=== PATIENT | male | born 1960 | race Caucasian/White ===

== ENCOUNTER 2025-02-20 10:31 | Day surgery (SDC) | payer MEDICARE, SELFPAY ==
[2025-02-20] VITALS (17 sets, daily range): BP systolic 105–163; BP diastolic 62–84; PULSE 43–74; RESP 16–20; TEMP 35.7–36.4; O2SAT 92–100; BMI 29.0; BMI 29.4
--- NOTE | 2025-02-20 10:55 | ED_ITS ---
HPI - General Adult General Chief complaint: Abdominal Pain Stated complaint: stomach pain Time Seen by Provider: 02/20/25 10:55 History of Present Illness HPI narrative: Pt reports onset of RLQ pain yesterday afternoon. Pt states severe pain is only symptom. Does report regular self?catheterization . Rates pain . 65-year-old man presenting to the emergency department with complaint of a sharp cramp in his right low abdomen began around 4:00 p.m. yesterday afternoon when he was just walking across the ER. He comes here after pain has escalated. Has been working on his car. Does not recall specific injury. No fever. No nausea. Does not feel like he needs anything for pain. No shortness of breath. He does acknowledge that he has had a swelling into his groin area on the right that he has been pushed back up in periodically. Apparently the swelling has been present for about 2 months. No constipation and no diarrhea. Related Data Previous Rx's ?Medication ?Instructions ?Recorded hydrocodone 5 mg-acetaminophen 325 1 - 2 tab PO Q6H [place] N Pain #20 tabs 02/20/25 mg tablet Allergies Allergy/AdvReac Type Severity Reaction Status Date / Time No Known Drug Allergies Allergy Verified 02/20/25 10:37 Review of Systems Status of ROS: Reports: 6 or more systems reviewed and unremarkable except as noted in History and below [facility] Medical History (Updated 02/21/25 @ 07:51 by Nancy Cordova MD) COPD (chronic obstructive pulmonary disease) ?J44.9 - Chronic obstructive pulmonary disease, unspecified (ICD-10) Cardiopulmonary arrest with successful resuscitation ?I46.9 - Cardiac arrest, cause unspecified (ICD-10) CAD (coronary artery disease) ?I25.10 - Atherosclerotic heart disease of hughes coronary artery without angina pectoris (ICD-10) Surgical History (Updated 02/21/25 @ 08:22 by Nelda Funk MD) H/O umbilical hernia repair ?Z98.890 - Other specified postprocedural states (ICD-10) ?Z87.19 - Personal history of other diseases of the digestive system (ICD-10) History of heart artery stent ?Z95.5 - Presence of coronary angioplasty implant and graft (ICD-10) History of hernia surgery ?Z98.890 - Other specified postprocedural states (ICD-10) ?Z87.19 - Personal history of other diseases of the digestive system (ICD-10) Social History (Updated 02/20/25 @ 15:17 by Giovanny Villareal MD) Narrative: He lives in [place] with his roommate, Kirstin white. Kirstin would be healthcare power of embalmer/funeral director. Code status is full. He smokes up to a pack of cigarettes per day. He does not drink alcohol. He occasionally uses cannabis What is your current living situation?: I presently have a place to live Problems where you live: no known problems In the past 12 months, utilities in danger of being shut off: no In past 12 months, lack of transportation kept you from medical appts, meetings, work, or getting things needed for daily living: no In the past 12 mos, have been you worried that your food would run out before you had money to buy more?: never true In the past 12 mos, the food you bought just didn't last and you didn't have money to buy more?: never true Smoking Status: Current every day smoker What tobacco products do you use: cigarettes Smoking packs per day: 1 Smoking cigarettes per day: 20.0 How often do you have a drink containing alcohol: never AUDIT-C Alcohol total score: 0 Non-prescribed substance use: marijuana (any form) How often does anyone, including family, friends and others, physically hurt you : never How often does anyone, including family, friends and others, insult or talk down to you: never How often does anyone, including family, friends and others, threaten you with harm: never How often does anyone, including family, friends and others, scream or curse at you: never Exam Narrative: Exam Narrative: Pleasant. NAD. Large mustache. Hands heavily stained with grease. Breathing easily. Lungs with good air movement with trace end-expiratory wheeze. Heart in regular rate and rhythm without apparent murmur rub but distant. Abdomen is soft. Moderately tender deep palpation in the right lower quadrant just above the inguinal crease. I do not appreciate a wall defect here. There is however swelling into the right inguinal area. Mildly tender to palpation. No inflam matory changes. Const: Vital Signs, click to edit/add: Vital Signs - 24 hr 02/20/25 10:35 Temperature 97.1 F L Pulse Rate [Pulse Oximeter] 74 Respiratory Rate 20 Blood Pressure [Ri ght Upper Arm] 160/83 H Pulse Oximetry 97 Oxygen Delivery Me thod Room Air Documenting provider has reviewed patient's vital signs: yes Course Vital Signs Vital signs: Initial Vital Signs Temperature 97.1 F L 02/20/25 10:35 Temperature Source Temporal Artery Scan 02/20/25 10:35 Pulse Rate 74 02/20/25 10:35 Respiratory Rate 20 02/20/25 10:35 Blood Pressure 160/83 H 02/20/25 10:35 Blood Pressure Mean 108 H 02/20/25 10:35 Blood Pressure Position Sitting 02/20/25 10:35 Pulse Oximetry 97 02/20/25 10:35 Oxygen Delivery Method Room Air 02/20/25 10:35 Vital Signs Temperature 97.1 F L 02/20/25 10:35 Pulse Rate 74 02/20/25 10:35 Respiratory Rate 20 02/20/25 10:35 Blood Pressure 160/83 H 02/20/25 10:35 Pulse Oximetry 97 02/20/25 10:35 Oxygen Delivery Method Room Air 02/20/25 10:35 Temperature 97.4 F L 02/21/25 07:00 Pulse Rate 62 02/21/25 07:00 Respiratory Rate 16 02/21/25 07:00 Blood Pressure 119/76 02/21/25 07:00 Pulse Oximetry 97 02/21/25 07:00 Oxygen Delivery Method Room Air 02/21/25 07:00 Oxygen Flow Rate 0 02/21/25 03:00 Medications Administered Medications: Discontinued Medications Generic Name Dose Route Start Last Admin Trade Name Aaronq PRN Reason Stop Dose Admin Hydrocodone Bitart/Acetaminophen 1 - 2 tab 02/20/25 21:18 02/20/25 21:57 Hydrocodone-Acetamin 5-325 Mg 1 Tab PO 1 tab Q4H PRN Administration Pain Bupivacaine HCl 30 ml 02/20/25 19:43 02/20/25 20:30 Bupivacaine 0.25% 30 Ml INJECTION 02/20/25 19:44 20 ml ONCE ONE Administration Lactated Ringer's 1,000 mls @ 125 mls/hr 02/20/25 14:55 02/21/25 07:22 Lactated Ringers 1000 Ml IV Not Given .Q8H BABAK Piperacillin Sod/Tazobactam 100 mls @ 200 mls/hr 02/20/25 15:00 02/21/25 05:43 Sod 3.375 gm/ Sodium Chloride IVPB Infused Q6H BABAK Infusion Sodium Chloride 5 ml 02/20/25 21:00 02/20/25 21:57 Sodium Chloride 0.9 % (Flush) 10 Ml Syringe IVF 5 ml BID BABAK Administration Medical Decision Making MDM Narrative Medical decision making narrative: A does appear to have inguinal hernia. Will evaluate with imaging for incarceration. I am not sure that has risen set level. Could also have appendicitis or mesenteric adenitis or ureteral stone and colic. Doubtful urinary tract infection. Does not feel anything for pain. Placing IV though for next steps. Reviewing history further with Mr. Cardona. He notes a history of coronary artery disease with a number of stents. Last was done around RSV infection in August of this year (actually 2023) he says when it sounds like he had a cardiopulmonary arrest and was hospitalized for a time. He admits that he has been prescribed medications but does not take any because he does not believe in them. More remotely had an umbilical hernia repair. Otherwise denies any other medical problems. He says he works hard regularly. Regularly cutting in throwing wood. He says he feels great. Urine actually does suggest infection with positive nitrites and 5-10 white cells. Indication: Right lower quadrant pain times 24 hours Technique: Volumetric multidetector CT images of the abdomen and pelvis were without the administration of intravenous contrast. Comparison: None available. Findings: There is basilar atelectasis and parenchymal scar within peripheral right lower lobe. The liver is normal in attenuation without intrahepatic biliary ductal dilatation. The gallbladder is unremarkable without evidence of radiopaque calculus. There is no significant common biliary ductal dilatation or abrupt cut off. The spleen is normal in attenuation and size. The stomach and duodenum are grossly unremarkable. The pancreas is normal in attenuation without significant atrophy. The adrenal glands are unremarkable. Cystic changes of the kidneys. No evidence of hydronephrosis or obstructive uropathy. Moderate stool seen throughout the colon with focal dilatation and inflammatory change adjacent to the terminal ileum and right lower quadrant. There is demonstration of a appendix seen within a right inguinal hernia with questionable mild dilatation and periappendiceal inflammatory changes around the proximal aspect with minimal inflammatory changes tracking into the right inguinal canal and scrotum. There is no significant mesenteric, retroperitoneal, or pelvic sidewall lymph nodes. The aorta is mildly aneurysmal measuring 3.7 x 3.4 centimeters in greatest dimension. The solid pelvic viscera are grossly unremarkable. There is no free fluid or free air. The anterior abdominal wall is intact without significant hernias. The lumbar vertebral body heights are grossly maintained with minimal endplate Schmorl`s defects. There is mild focal straightening of the normal thoracic kyphosis at the thoracolumbar junction. Impression: 1. Demonstration of a herniated appendix within a right inguinal hernia consistent with an Amyand hernia with questionable dilatation of the proximal appendix and periappendiceal inflammatory changes of the right lower quadrant mesentery tracking into the right inguinal canal which may represent developing early appendicitis within right inguinal hernia. There is mild thickening and dilatation of the distal terminal ileum which may represent focal ileus. Please note that all CT scans at this facility use dose modulation, iterative reconstruction, and/or weight-based dosing when appropriate to reduce radiation dose to as low as reasonably achievable. Dictated by Luis Mejia MD @ 02/20/2025 11:48:22 AM I discussed findings with General surgery. Anticipate likely need for surgical intervention. Have discussed with hospitalist for admission. Anticipate antibiotic coverage likely for this urinalysis results and perioperatively. Lab Data Lab results reviewed: Yes I reviewed the patient's lab results Labs: Lab Results 02/20/25 02/20/25 Range/Units 11:25 11:55 WBC 7.06 (4.50-11.00) K/uL RBC 4.80 (4.30-5.90) m/uL Hgb 14.5 (13.5-17.5) gm/dL Hct 44.7 (37.0-53.0) % MCV 93 (80-100) fL MCH 30 (26-34) pg MCHC 32 (32-36) gm/dL RDW Coeff of Josue 13.5 (11.5-15.5) % Plt Count 172 (140-440) K/uL Neut % (Auto) 67.8 (42.0-72.0) % Lymph % (Auto) 22.1 (20-44) % [place] % (Auto) 8.2 (0.0-11.0) % Eos % (Auto) 1.4 (0.0-7.0) % Baso % (Auto) 0.4 (0.0-3.0) % Neut # (Auto) 4.78 (1.7-7.0) K/uL Lymph # (Auto) 1.56 (0.90-2.90) K/uL [place] # (Auto) 0.60 (0.00-0.90) K/UL Eos # (Auto) 0.10 (0.00-0.50) K/uL Baso # (Auto) 0.03 (0.00-0.30) K/uL Abs Immat Gran (auto) 0.01 (0.00-0.30) K/uL Imm/Tot Granulo (auto) 0.1 % Sodium 137 (135-149) mmol/L Potassium 3.7 (3.6-5.1) mmol/L Chloride 108 (96-114) mmol/L Carbon Dioxide 26 (20-32) mmol/L Anion Gap 3 L (7-15) mEq/L BUN 18 (7-30) mg/dL Creatinine 0.9 (0.5-1.5) mg/dL Estimated Creat Clear 68.85 Estimated GFR 95 ml/min Glucose 106 (60-115) mg/dL Calcium 9.2 (8.4-10.6) mg/dL C-Reactive Protein 0.5 (0.5-1.0) mg/dL Urine Color Yellow (Yellow) Urine Appearance Slightly Cloudy A (Clear) Urine pH 6.0 (5.0-8.5) Ur Specific Dunbar 1.025 (1.000-1.030) Urine Protein Negative (Negative) Urine Glucose (UA) Negative (Negative) Urine Ketones Trace A (Negative) Urine Blood Negative (Negative) Urine Nitrite Positive A (Negative) Urine Bilirubin Negative (Negative) Urine Urobilinogen 0.2 (0.2-1.0) Ur Leukocyte Esterase Negative (Negative) Urine RBC 0-2 (0-2) Urine WBC 5-10 A (0-5) Ur Squamous Epith Cells None (None-Few) Urine Bacteria Many A (None) Discharge Plan Discharge Clinical Impression: Appendicitis, Inguinal hernia Patient Disposition: Admitted As Inpatient Condition: Stable Activity Level: No strenuous activity Activity Detail: No lifting more than 20 lb for 4 weeks Discharge Diet: Regular
--- NOTE | 2025-02-20 11:16 | CRLHL7_ITS ---
For Patients: As a result of the Century Cures Act, medical imaging exams and procedure reports are released immediately into your electronic medical record. You may view this report before your referring provider. If you have questions, please contact your health care provider. Indication: Right lower quadrant pain times 24 hours Technique: Volumetric multidetector CT images of the abdomen and pelvis were without the administration of intravenous contrast. Comparison: None available. Findings: There is basilar atelectasis and parenchymal scar within peripheral right lower lobe. The liver is normal in attenuation without intrahepatic biliary ductal dilatation. The gallbladder is unremarkable without evidence of radiopaque calculus. There is no significant common biliary ductal dilatation or abrupt cut off. The spleen is normal in attenuation and size. The stomach and duodenum are grossly unremarkable. The pancreas is normal in attenuation without significant atrophy. The adrenal glands are unremarkable. Cystic changes of the kidneys. No evidence of hydronephrosis or obstructive uropathy. Moderate stool seen throughout the colon with focal dilatation and inflammatory change adjacent to the terminal ileum and right lower quadrant. There is demonstration of a appendix seen within a right inguinal hernia with questionable mild dilatation and periappendiceal inflammatory changes around the proximal aspect with minimal inflammatory changes tracking into the right inguinal canal and scrotum. There is no significant mesenteric, retroperitoneal, or pelvic sidewall lymph nodes. The aorta is mildly aneurysmal measuring 3.7 x 3.4 centimeters in greatest dimension. The solid pelvic viscera are grossly unremarkable. There is no free fluid or free air. The anterior abdominal wall is intact without significant hernias. The lumbar vertebral body heights are grossly maintained with minimal endplate Schmorl`s defects. There is mild focal straightening of the normal thoracic kyphosis at the thoracolumbar junction. Impression: 1. Demonstration of a herniated appendix within a right inguinal hernia consistent with an Amyand hernia with questionable dilatation of the proximal appendix and periappendiceal inflammatory changes of the right lower quadrant mesentery tracking into the right inguinal canal which may represent developing early appendicitis within right inguinal hernia. There is mild thickening and dilatation of the distal terminal ileum which may represent focal ileus. Please note that all CT scans at this facility use dose modulation, iterative reconstruction, and/or weight-based dosing when appropriate to reduce radiation dose to as low as reasonably achievable. Dictated by Luis Mejia MD @ 02/20/2025 11:48:22 AM (Electronically Signed)
[2025-02-20 11:39] LABS: Hematocrit 44.7 % (37.0-53.0); Hemoglobin* 14.5 gm/dL (13.5-17.5); Immature Granulocytes Abs Auto 0.01 K/uL (0.00-0.30); Immature Granulocytes Pct Auto 0.1 %; Lymphocytes Absolute Auto 1.56 K/uL (0.90-2.90); Mean Corpuscular HGB Conc 32 gm/dL (32-36); Mean Corpuscular Hemoglobin 30 pg (26-34); Mean Corpuscular Volume 93 fL (80-100); RDW Coefficient of Variation % 13.5 % (11.5-15.5); Red Blood Count 4.80 m/uL (4.30-5.90); White Blood Count* 7.06 K/uL (4.50-11.00)
[2025-02-20 11:43] LABS: Slide Review Reflex No
[2025-02-20 11:49] LABS: Chloride* 108 mmol/L (96-114); Potassium* 3.7 mmol/L (3.6-5.1); Sodium* 137 mmol/L (135-149)
[2025-02-20 11:52] LABS: Blood Urea Nitrogen* 18 mg/dL (7-30); Creatinine* 0.9 mg/dL (0.5-1.5); Est. Creatinine Clearance* 68.85; Estimated Glomerular Filt Rate 95 ml/min
[2025-02-20 11:53] LABS: Anion Gap 3 mEq/L (7-15); Calcium* 9.2 mg/dL (8.4-10.6); Carbon Dioxide* 26 mmol/L (20-32); Glucose* 106 mg/dL (60-115)
--- OUTSIDE RECORDS SUMMARY | 2025-02-20 11:59 | XMS_ITS | Clinical Summary ---
Author Organization [employer] [facility] Address [address] [place] [id number] Care Team Providers Care Junior Loan Processor Name Role Phone [facility], [facility] Pro vider Allergies Active Allergy Reactions Criticality Noted Date Comments Atorvastatin *Unknown 09/03/2014 Cat Dander Other - Describe In Comment Field 08/03/2018 Breathing, eyes swell up Isosorbide Mononitrate Headache 11/01/2010 Niacin Rash 12/06/2013 Medications aspirin (ECOTRIN) 81 mg enteric coated tablet Take 81 mg by mouth once daily with a meal. Active NebulizerIndicat ions:Asthma with COPD with exacerbation (HC) Nebulizer, disposable neb kit x 4, reuseable neb kit x 1, mask x 1, filters x 1. Frequency of use: daily; Medication: Albuterol Length of need: 2 months 1 Each 06/30/19 24 Active acetaminophen (TYLENOL EXTRA STRGTH) 500 mg tablet Take 1,000 mg by mouth every 6 hours if needed. Max acetaminophen dose: 4000mg in 24 hrs. Active rosuvastatin (CRESTOR) 20 mg tabletIndication s:ST elevation myocardial infarction involving right coronary artery (HC) Take 1 Tablet (20 mg) by mouth at bedtime. 90 Tablet 3 09/06/19 24 Active carvediloL (COREG) 3.125 mg tabletIndication s:ST elevation myocardial infarction involving right coronary artery (HC) Take 1 Tablet (3.125 mg) by mouth two times daily with meals. 180 Tablet 3 09/06/19 24 Active ticagrelor (BRILINTA) 90 mg tabletIndication s:ST elevation myocardial infarction involving right coronary artery (HC) Take 1 Tablet (90 mg) by mouth two times daily. 180 Tablet 3 09/06/19 24 Active ezetimibe (Zetia) 10 mg tabletIndication s:Arteriosclerot ic heart disease Take 1 Tablet (10 mg) by mouth once daily. 90 Tablet 3 12/17/19 24 Active Ventolin HFA 90 mcg/actuation inhalerIndicatio ns:Mild intermittent asthma with exacerbation (HC) INHALE 2 PUFFS BY MOUTH FOUR TIMES A DAY NEEDED FOR WHEEZING OR SHORTNESS OF BREATH 18 g 01/13/20 24 Active albuterol-ipratr opium (DUONEB) (2.5-0.5 mg) in 3 mL NEBULIZATION solutionIndicati ons:Asthma with COPD with exacerbation (HC) INHALE 3 ML VIA A NEBULIZER EVERY 6 HOURS NEEDED FOR WHEEZING OR SHORTNESS OF BREATH. 180 mL 05/11/20 24 Active albuterol HFA (Ventolin HFA) 90 mcg/actuation inhalerIndicatio ns:Mild intermittent asthma with exacerbation (HC) INHALE 2 PUFFS BY MOUTH 4 TIMES DAILY IF NEEDED FOR WHEEZING OR SHORTNESS OF BREATH. 18 g 5 05/30/20 24 Active HYDROcodone-acet aminophen (5-325 mg/tablet)Indica tions:Dental abscess Take 2 Tablets by mouth 4 times daily if needed for Pain. Max acetaminophen dose: 4000 mg in 24 hrs. 15 Tablet 08/16/19 25 Active Active Problems Problem Noted Date Diagnosed Date Acute respiratory failure 07/27/2023 Leukocytosis 07/27/2023 Encounter for continuous amalia al replacement therapy (CRRT) for acute renal failure 07/20/2023 TAMMY (acute kidney injury) 07/20/2023 Acidemia 07/20/2023 Need for vaccination 07/20/2023 Pneumonia due to respiratory syncytial virus (RS V) 07/20/2023 Need for vaccination 07/20/2023 Life threatening medical illness 07/20/2023 Cardiac arrest 07/18/2023 ST elevation myocardial infa rction involving right coronary artery 07/18/2023 COPD with acute exacerbation 07/18/2023 Pulmonary nodule, right 01/08/2018 Overview (01/08/2018): December 2017 CT Pulmonary nodule right lower lobe as well as nodules along the right minor and major fissures as described above largest measuring 0.6 cm Hypertension 02/17/2016 Overview (06/07/2019): Hypertension (HTN) NOS Pneumonia 11/14/2013 Hypoxemia 11/14/2013 COPD (chronic obstructive pulmonary disease) CAD (coronary artery disease) 11/14/2013 Hyperlipidemia LDL goal < 70 11/14/2013 Tobacco use 11/14/2013 Thrombocytopenia 11/14/2013 Unspecified asthma(493.90) 01/16/2011 History of heart attack 01/16/2011 Immunizations Immunization Administration Dates Next Due Influenza Virus, Unspecified 03/26/2016,07/13/19 15,04/28/2012 Influenza, IIV3 (Age >=3 years) 04/28/2012,05/18,09/12/2007 Influenza, IIV4 08/06/2023,03/26/2016 Pneumococcal Conj 20-valent (Prevnar 20) 024 Pneumococcal Poly,23-Valent (Pneumovax) 11/16/19 14,09/12/2007 Pneumococcal conj 13-Valent (Prevnar 13) 015 Pneumococcal conj 7-Valent (Prevnar 7) 8 Tdap 10/08/2020,03/26/2011 Family History Medical History Relation Name Comments No Known Problems Father No Known Problems Mother Relation Name Status Comments Father Mother Social History Tobacco Use Types Packs/Day Years Used Date Smoking Tobacco: Every Day Cigarettes Passive Smoke Exposure: Current Smokeless Tobacco: Never Tobacco Cessation:Ready to Q uit: Not Asked; Counseling Given: Not Answered Alcohol Use Standard Drinks/Week Comments No 0 (1 standard drink = 0.6 oz pure alcohol) Just drinks socially other hernandez does not drink PHQ-2 Answer Date Recorded PHQ-2 TOTAL SCORE 0 05/30/2024 Social Connections Answer Date Recorded Frequency of Communication with Friends and Fami ly 0 11/10/2022 Financial Resource Strain Answer Date R ecorded Difficulty of Paying Living Expenses Not on file 11/10/2022 Difficulty of Paying Living Expenses 3 11/10/2022 Food Insecurity Answer Date Recorded Worried About Running Out of Food in the Last Ye ar 2 11/10/2022 Transportation Needs Answer Date Record ed Lack of Transportation (Medical) 2 11/10/2022 Housing Stability Answer Date Recorded Unable to Pay for Housing in the Last Year 3 11/10/2022 Interpersonal Safety Answer Date Record ed Are you being hit, kicked, p ushed or yelled at (see row info)? 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[employer] Gender Identity Not on file Sexual Orientation Not on file Obstetrics History Last Filed Vital Signs Vital Sign Reading Time Taken Comments Blood Pressure 151/87 08/16/2024 10:11 AM PLASTERER JOURNEYMAN Pulse 71 08/16/2024 10:11 AM PLASTERER JOURNEYMAN Temperature 36.4 C (97.6 F) 08/16/2024 9:11 AM PLASTERER JOURNEYMAN Respiratory Rate 18 08/16/2024 9:11 AM PLASTERER JOURNEYMAN Oxygen Saturation 95% 08/16/2024 10:11 AM PLASTERER JOURNEYMAN Inhaled Oxygen Concentration - - Weight 98.1 kg (216 lb 3.2 oz) 08/16/2024 9:11 A M [employer] JOURNEY[employer] Height 172.7 cm (5' 8) 08/16/2024 9:11 AM PLASTERER JOURNEYMAN Body Mass Index 32.87 08/16/2024 9:11 AM PLASTERER JOURNEYMAN Plan of Treatment Health Maintenance Due Date Last Done Comments HIV for age 15-65 01/09/1975 Hepatitis C screening for age 18-79 01/09/1978 Colonoscopy through age 75 01/09/2005 Zoster (shingles) series for age 50+ (1 of 2) 01/09/2010 RSV vaccine for adults or (1 - Risk 60-74 years 1-dose series) 2020 COVID-19 vaccine series ( - 2023- season) 2024 BMI (ht and wt on same day) for age 18+ 09/05/2024 09/06/2023, 08/06/2023, 11/10/2022 AAA screening age 65-74 01/09/2025 01/08/2018, 02/11 Influenza Vaccine (#1) 2025 , 03/26/2016, 03/26/2016, Additional history exists Depression screening for age 12+ 05/30/2025 05/30/2024, 11/12/2022, 11/10/2022 Lipids for age 45-75 12/14/2028 12/15/2023, 11/16/19 14 Tetanus booster 10/08/2030 10/08/2020, 03/26/2011 Pneumococcal series for age 50+ Completed 08/06/2023, 07/13/2014, 11/15/2013, Additional history exists Hepatitis B series for 19+ Aged Out N o longer eligible based on patient's age to complete this topic Medical Devices Implanted Type Area Preschool Lead Teacher Device Identifier Shelf Expiration Date Model / Serial / Lot Mesh Ventralex Hernia Patch (S) #[id number] - [id number] Implanted:Qty: 1 on 12/06/2013 by Lebron Kerns MD at [facility] N/A: Abdomen D-BARD 11/26/2015 [id number] / / [id number] Procedures Procedure Name Priority Date/Time Associated Diagnosis Comments LIPID PANEL W REFLEX MEASURED LDL Routine 12/15/2023 1:50 PM CDT Pure hypercholesterolemia CTA CHEST ABDOMEN PELVIS AORTIC DISSECTION W STAT 01/08/2018 5:39 AM CDT from Last 3 Months or Most Recently Relevant to Health Maintenance Results * (ABNORMAL) LIPID PANEL W REFLEX MEASURED LDL ([id number]) (12/15/2023 1:50 PM CDT) CHOLESTEROL,TOTAL 209(H) 100 - 199 mg/dL 12/15/2023 2:33 PM CDT [facility] Comment: Cholesterol, Total Reference Ranges Desirable <200 mg/dL Borderline 200-239 mg/dL High >=240 mg/dL TRIGLYCERIDES 241(H) <150 mg/dL 12/15/2023 2:33 PM CDT [facility] HDL CHOLESTEROL 39(L) >40 mg/dL 4 2:33 PM T [facility] NON-HDL CHOLESTEROL 170(H) <145 mg/dl 12/15/2023 2:33 PM CDT [facility] CHOL/HDL RATIO 5.36(H) <4.50 12/15/2023 2:33 PM CDT [facility] LDL CHOLESTEROL 122 <=130 mg/dL 12/15/2023 2:33 PM CDT [facility] VLDL CHOLESTEROL 48(H) <=30 mg/dL 12/15/2023 2:33 PM CDT [facility] PROVIDER ORDERED STATUS RANDOM 12/15/2023 2:33 PM CDT [facility] Blood BLOOD SPECIMEN / Unknown Venipuncture / Unknown 12/15/2023 1:50 PM CDT 12/15/2023 1:50 PM CDT us Andrew Joe MD CHEMISTRY Final Result [facility] [address] [place] [address] * CTA CHEST ABDOMEN PELVIS AORTIC DISSECTION W (01/08/2018 5:39 AM CDT) Anatomical Region Laterality Modality CHEST, Abdomen, Pelvis, AORTA, THORAX, HEART Computed Tomography 01/08/2018 7:33 AM CDT Narrative 01/08/2018 7:33 AM CDT INDICATION: Chest pain. TECHNIQUE: Initial axial images were obtained from the apices to the mid abdomen without contrast. Subsequent axial images were obtained from the diaphragm to the symphysis pubis after administration of 100 mL Isovue-370 intravenously. Repeat axial images were obtained from the apices to the diaphragm 1 hour after the initial study without additional contrast. Subsequent axial images were then obtained from the apices to the diaphragm after administration of additional Isovue-370 intravenously. Sagittal and coronal reformatted images were obtained. FINDINGS: Chest: There is atelectasis in the dependent portion lungs. On image number 97 of series 13 there is a 0.6 cm nodule in the right lower lobe. Along the right minor fissure on image #67 of series 13 there is a 0.6 cm pulmonary nodule. On image #68 of series 13 there are 2 pulmonary nodule along the right major fissure measuring up to 0.5 cm. There is no aortic dissection seen on this the study. There are atherosclerotic calcifications. There is no axillary or mediastinal adenopathy. There is a borderline prominent hilar lymph nodes bilaterally. Abdomen and pelvis: The liver is of diffuse decreased attenuation consistent with fatty infiltration of the liver. There is no focal liver lesions seen. The spleen, pancreas, gallbladder and adrenal glands are unremarkable. There is a 1.6 cm cyst in the lower pole of the right kidney. There is no hydronephrosis seen in the kidneys. There is no evidence of a bowel obstruction. There are scattered diverticula in the descending and sigmoid colon. There is no evidence of a diverticulitis. The appendix is visualized in the right lower quadrant and is unremarkable. There is no adenopathy seen. The wall of the urinary bladder appears thickened. There is no free fluid the pelvis. There are degenerative changes in the spine. IMPRESSION: 1. No aortic dissection seen. 2. Pulmonary nodule right lower lobe as well as nodules along the right minor and major fissures as described above largest measuring 0.6 cm. Recommend follow-up per the Fleischner site as described below. 3. Borderline prominent hilar lymph nodes. 4. Appearance of a thickening of the wall urinary bladder. This could be secondary to a cystitis. 5. Scattered diverticula in the descending and sigmoid colon. No evidence of diverticulitis. 6. Right kidney cyst. 7. Fatty infiltration of the liver. FLEISCHNER SOCIETY GUIDELINES - SOLID NODULES: SINGLE LOW RISK - nodule less than 6 mm: No routine follow-up. - nodule 6-8 mm: CT at 6-12 months, then consider CT at 18-24 months. - nodule greater than 8 mm: Consider CT at 3 months, PET/CT or tissue sampling. SINGLE HIGH RISK - nodule less than 6 mm: Optional CT at 12 months. - nodule 6-8 mm: CT at 6-12 months, then CT at 18-24 months. - nodule greater than 8 mm: Consider CT at 3 months, PET/CT or tissue sampling. MULTIPLE LOW RISK - nodule less than 6 mm: No routine follow-up. - nodule 6-8 mm: CT at 3-6 months, then consider CT at 18-24 months. - nodule greater than 8 mm: CT at 3-6 months, then consider CT at 18-24 months. MULTIPLE HIGH RISK - nodule less than 6 mm: Optional CT at 12 months. - nodule 6-8 mm: CT at 3-6 months, then at 18-24 months. - nodule greater than 8 mm: CT at 3-6 months, then at 18-24 months. 1. Dictated by Giovanny Zuleta MD @ 01/08/2018 7:33:26 AM Please note that all CT scans at this facility use dose modulation, iterative reconstruction, and/or weight-based dosing when appropriate to reduce radiation dose to as low as reasonably achievable. Dictated by: Giovanny Zuleta MD @ 01/08/2018 07:33:54 (Electronically Signed) Procedure Note Giovanny Zuleta MD - 01/08/2018 INDICATION: Chest pain. TECHNIQUE: Initial axial images were obtained from the apices to the mid abdomenwithout contrast. Subsequent axial images were obtained from the diaphragmto the symphysis pubis after administration of 100 mL Isovue-370intravenously. Repeat axial images were obtained from the apices to thediaphragm 1 hour after the initial study without additional contrast.Subsequent axial images were then obtained from the apices to thediaphragm after administration of additional Isovue-370 intravenously.Sagittal and coronal reformatted images were obtained. FINDINGS: Chest: There is atelectasis in the dependent portion lungs. On image number 97 ofseries 13 there is a 0.6 cm nodule in the right lower lobe. Along theright minor fissure on image #67 of series 13 there is a 0.6 cm pulmonarynodule. On image #68 of series 13 there are 2 pulmonary nodule along theright major fissure measuring up to 0.5 cm. There is no aortic dissectionseen on this the study. There are atherosclerotic calcifications. There isno axillary or mediastinal adenopathy. There is a borderline prominenthilar lymph nodes bilaterally. Abdomen and pelvis: The liver is of diffuse decreased attenuation consistent with fattyinfiltration of the liver. There is no focal liver lesions seen. Thespleen, pancreas, gallbladder and adrenal glands are unremarkable. Thereis a 1.6 cm cyst in the lower pole of the right kidney. There is nohydronephrosis seen in the kidneys. There is no evidence of a bowelobstruction. There are scattered diverticula in the descending and sigmoidcolon. There is no evidence of a diverticulitis. The appendix isvisualized in the right lower quadrant and is unremarkable. There is noadenopathy seen. The wall of the urinary bladder appears thickened. Thereis no free fluid the pelvis. There are degenerative changes in thespine. IMPRESSION: 1. No aortic dissection seen. 2. Pulmonary nodule right lower lobe as well as nodules along the rightminor and major fissures as described above largest measuring 0.6 cm.Recommend follow-up per the Fleischner site as described below. 3. Borderline prominent hilar lymph nodes. 4. Appearance of a thickening of the wall urinary bladder. This could besecondary to a cystitis. 5. Scattered diverticula in the descending and sigmoid colon. No evidenceof diverticulitis. 6. Right kidney cyst. 7. Fatty infiltration of the liver. FLEISCHNER SOCIETY GUIDELINES - SOLID NODULES: SINGLE LOW RISK - nodule less than 6 mm: No routine follow-up. - nodule 6-8 mm: CT at 6-12 months, then consider CT at 18-24 months. - nodule greater than 8 mm: Consider CT at 3 months, PET/CT or tissuesampling. SINGLE HIGH RISK - nodule less than 6 mm: Optional CT at 12 months. - nodule 6-8 mm: CT at 6-12 months, then CT at 18-24 months. - nodule greater than 8 mm: Consider CT at 3 months, PET/CT or tissuesampling. MULTIPLE LOW RISK - nodule less than 6 mm: No routine follow-up. - nodule 6-8 mm: CT at 3-6 months, then consider CT at 18-24 months. - nodule greater than 8 mm: CT at 3-6 months, then consider CT at 18-24months. MULTIPLE HIGH RISK - nodule less than 6 mm: Optional CT at 12 months. - nodule 6-8 mm: CT at 3-6 months, then at 18-24 months. - nodule greater than 8 mm: CT at 3-6 months, then at 18-24 months. 1. Dictated by Giovanny Zuleta MD @ 01/08/2018 7:33:26 AM Please note that all CT scans at this facility use dose modulation,iterative reconstruction, and/or weight-based dosing when appropriate toreduce radiation dose to as low as reasonably achievable. Dictated by: Giovanny Zuleta MD @ 01/08/2018 07:33:54 (Electronically Signed) us Adele Saul MD CT Final Result from Last 3 Months or Most Recently Relevant to Health Maintenance Insurance [facility] Advance Directives * Full Code (Latest Code Status on File) Date Activated Date Inactivated Comments 07/18/2023 3:11 PM 07/29/2023 6:11 PM Question Answer Comments Code Status Discussion: Reviewed Preferences * Full Code Date Activated Date Inactivated Comments 12/06/2013 8:06 AM 12/06/2013 2:50 PM * Full Code Date Activated Date Inactivated Comments 11/30/2013 8:18 AM 11/30/2013 12:00 PM * Full Code Date Activated Date Inactivated Comments 11/13/2013 10:54 PM 11/15/2013 4:57 PM Care Teams Junior Loan Processor Relationship Specialty Start Date End Date [facility], [address] [address] PCP - General 10/30/[address] [address] 07/29/23
[2025-02-20 12:06] LABS: Appearance Urine Slightly Cloudy (Clear)
--- NOTE | 2025-02-20 13:18 | CRLHL7_ITS ---
For Patients: As a result of the Cures Act, medical imaging exams and procedure reports are released immediately into your electronic medical record. You may view this report before your referring provider. If you have questions, please contact your health care provider. Indication: Wheezing, preop Comparison: None available. Technique: PA and lateral views of the chest Findings: There are diffusely increased interstitial markings throughout the bilateral hemithoraces without dense consolidation. No pneumothorax or pleural effusion. The cardiomediastinal silhouette is within normal limits. The bony thorax is grossly intact. Impression: Diffusely increased interstitial markings seen throughout the bilateral hemithoraces which may represent mild pulmonary vascular congestion. Dictated by Luis Mejia MD @ 02/20/2025 1:39:32 PM (Electronically Signed)
--- NOTE | 2025-02-20 15:07 | PM.IMHP1 ---
Assessment and Plan Assessment and plan (1) Appendicitis: Status: Acute (2) Inguinal hernia: Status: Acute (3) CAD (coronary artery disease): Problem comment: Cardiac arrest June 2023. Right coronary stent placed at that time. Subsequently he has discontinued antiplatelet and lipid-lowering therapy. Status: Acute (4) COPD (chronic obstructive pulmonary disease): Problem comment: Secondary to cigarette smoking. Continues to smoke. Status: Acute Plan 65-year-old male with coronary artery disease, COPD and now appendicitis. He is at increased risk of complications due to coronary artery disease and COPD and noncompliance with medical treatment. By his history he is physically active and likely has good exercise tolerance. We discussed risks and benefits of surgery and anesthesia. He agrees to surgery here. He understands there is a small risk of cardia respiratory complications and possible need for transfer for higher level of care. He agrees to hold off on eating until he is recovered from surgery. Total Time Spent Total Time Spent: Total time spent today is 75 minutes in reviewing outside records, coordination of care and discussing plan of care with patient, surgery, Anesthesia, Nursing. Hospitalist- H&P: [facility] History of Present Illness Date Seen: 02/20/25 Chief complaint: stomach pain Narrative: Marcelo Cardona is a 65 year old male with history of cardiac arrest secondary to coronary artery disease and COPD presents with a 1 day history of right lower quadrant pain. He was moving logs yesterday with a friend when he suddenly had right lower quadrant pain. The pain persisted to today so he came to the emergency room for evaluation. He has had nothing to eat today. Past history is notable for a cardiac arrest which occurred while he was in the hospital for difficulty breathing. He underwent CPR for 2 rounds and did get ROSC . He was noted to have ST elevation in the inferior leads so he is taken to the [facility] where he underwent stent placement in the right coronary artery. He was on a ventilator for 1 week. He had acute kidney injury and acute encephalopathy which improved. He was prescribed medication for his coronary disease including aspirin, ticagrelor, Zetia, rosuvastatin but he is no longer taking those medications and is no longer interested in having them prescribed for him. He has COPD secondary to cigarette smoking. He continues to smoke around 1 pack cigarettes a day. In the emergency department CT imaging showed what appears to be appendicitis within a right inguinal hernia. Review of Systems Narrative: He reports he has been well recently without chest pain, dyspnea, gastrointestinal problems. He has noted over the last couple months that he has had swelling in his groin area on the right which is likely is hernia and which he has been self reducing. He has had previous surgeries include a umbilical hernia repair, ORIF of a right ankle fracture, cardiac stents. No previous problems with anesthesia, bleeding or clotting. Patient reports his primary concern is that he is hungry. He is threatening to leave if we do not provide him food soon. [facility] Medical History (Updated 02/20/25 @ 15:24 by Giovanny Villareal MD) COPD (chronic obstructive pulmonary disease) ?J44.9 - Chronic obstructive pulmonary disease, unspecified (ICD-10) Cardiopulmonary arrest with successful resuscitation ?I46.9 - Cardiac arrest, cause unspecified (ICD-10) CAD (coronary artery disease) ?I25.10 - Atherosclerotic heart disease of [place] coronary artery without angina pectoris (ICD-10) Surgical History (Updated 02/20/25 @ 15:16 by Giovanny Villareal MD) H/O umbilical hernia repair ?Z98.890 - Other specified postprocedural states (ICD-10) ?Z87.19 - Personal history of other diseases of the digestive system (ICD-10) History of heart artery stent ?Z95.5 - Presence of coronary angioplasty implant and graft (ICD-10) History of hernia surgery ?Z98.890 - Other specified postprocedural states (ICD-10) ?Z87.19 - Personal history of other diseases of the digestive system (ICD-10) Social History (Updated 02/20/25 @ 15:17 by Giovanny Villareal MD) Narrative: He lives in [place] with his roommate, Kirstin white. Kirstin would be healthcare power of marketing project specialist. Code status is full. He smokes up to a pack of cigarettes per day. He does not drink alcohol. He occasionally uses cannabis What is your current living situation?: I presently have a place to live Problems where you live: no known problems In the past 12 months, utilities in danger of being shut off: no In past 12 months, lack of transportation kept you from medical appts, meetings, work, or getting things needed for daily living: no In the past 12 mos, have been you worried that your food would run out before you had money to buy more?: never true In the past 12 mos, the food you bought just didn't last and you didn't have money to buy more?: never true Smoking Status: Current every day smoker What tobacco products do you use: cigarettes Smoking packs per day: 1 Smoking cigarettes per day: 20.0 How often do you have a drink containing alcohol: never AUDIT-C Alcohol total score: 0 Non-prescribed substance use: marijuana (any form) How often does anyone, including family, friends and others, physically hurt you: never How often does anyone, including family, friends and others, insult or talk down to you: never How often does anyone, including family, friends and others, threaten you with harm: never How often does anyone, including family, friends and others, scream or curse at you: never Meds Home Medications and Allergies Home Medications ?Medication ?Instructions ?Recorded ?Confirmed ?Type No Known Home Medications 02/20/25 02/20/25 History Home Medication Comments: He stopped all previous medications except albuterol inhaler Allergies Allergy/AdvReac Type Severity Reaction Status Date / Time No Known Drug Allergies Allergy Verified 02/20/25 10:37 Exam Narrative: Exam Narrative: He is alert and appears in no distress. Oropharynx with dental loss. Neck is supple without mass or adenopathy. Respirations are clear to auscultation without wheezing rales or rhonchi. Mildly diminished breath sounds with fair air exchange all lung mckinney. Cardiovascular: S1, S2, regular rate and rhythm. Abdomen: Bowel sounds active. Abdomen is soft. No tenderness except in the right lower quadrant where he has moderate tenderness and some guarding.. I do not palpate a mass. Extremities with intact pulses. No significant edema. Well-perfused extremities. Skin is notable for multiple abrasions. Const: Vital Signs, click to edit/add: Vital Signs - 24 hr 02/20/25 10:35 02/20/25 13:49 02/20/25 14:38 Temperature 97.1 F L 97.6 F Pulse Rate [Pulse Oximeter] 74 61 Pulse Rate [Right Radial] 58 L Respiratory Rate 20 18 18 Blood Pressure [Ri ght Arm] 156/80 H Blood Pressure [Ri ght Upper Arm] 160/83 H 136/84 Pulse Oximetry 97 97 100 Oxygen Delivery Me thod Room Air Room Air Room Air Documenting provider has reviewed patient's vital signs: yes Hospitalist - H&P: Result Labs Labs: Short CBC 02/20/25 Range/Units 11:25 WBC 7.06 (4.50-11.00) K/uL Hgb 14.5 (13.5-17.5) gm/dL Hct 44.7 (37.0-53.0) % Plt Count 172 (140-440) K/uL BMP 02/20/25 11:25 Sodium 137 Potassium 3.7 Chloride 108 Carbon Dioxide 26 BUN 18 Creatinine 0.9 Glucose 106 Calcium 9.2 Urine 02/20/25 Range/Units 11:55 Urine Color Yellow (Yellow) Urine Appearance Slightly Cloudy A (Clear) Urine pH 6.0 (5.0-8.5) Ur Specific Thayer 1.025 (1.000-1.030) Urine Protein Negative (Negative) Urine Glucose (UA) Negative (Negative) ECG Attestation: I personally reviewed and interpreted this ECG as follows: (Normal sinus rhythm with right bundle branch block inferior and lateral Q-waves likely reflecting old GA in June 2019 for) Imaging Chest x-ray: Radiologist's impression: Indication: Wheezing, preop Comparison: None available. Technique: PA and lateral views of the chest Findings: There are diffusely increased interstitial markings throughout the bilateral hemithoraces without dense consolidation. No pneumothorax or pleural effusion. The cardiomediastinal silhouette is within normal limits. The bony thorax is grossly intact. Impression: Diffusely increased interstitial markings seen throughout the bilateral hemithoraces which may represent mild pulmonary vascular congestion. CT scan - abdomen: Radiologist's impression: Indication: Right lower quadrant pain times 24 hours Technique: Volumetric multidetector CT images of the abdomen and pelvis were without the administration of intravenous contrast. Comparison: None available. Findings: There is basilar atelectasis and parenchymal scar within peripheral right lower lobe. The liver is normal in attenuation without intrahepatic biliary ductal dilatation. The gallbladder is unremarkable without evidence of radiopaque calculus. There is no significant common biliary ductal dilatation or abrupt cut off. The spleen is normal in attenuation and size. The stomach and duodenum are grossly unremarkable. The pancreas is normal in attenuation without significant atrophy. The adrenal glands are unremarkable. Cystic changes of the kidneys. No evidence of hydronephrosis or obstructive uropathy. Moderate stool seen throughout the colon with focal dilatation and inflammatory change adjacent to the terminal ileum and right lower quadrant. There is demonstration of a appendix seen within a right inguinal hernia with questionable mild dilatation and periappendiceal inflammatory changes around the proximal aspect with minimal inflammatory changes tracking into the right inguinal canal and scrotum. There is no significant mesenteric, retroperitoneal, or pelvic sidewall lymph nodes. The aorta is mildly aneurysmal measuring 3.7 x 3.4 centimeters in greatest dimension. The solid pelvic viscera are grossly unremarkable. There is no free fluid or free air. The anterior abdominal wall is intact without significant hernias. The lumbar vertebral body heights are grossly maintained with minimal endplate Schmorl`s defects. There is mild focal straightening of the normal thoracic kyphosis at the thoracolumbar junction. Impression: 1. Demonstration of a herniated appendix within a right inguinal hernia consistent with an Amyand hernia with questionable dilatation of the proximal appendix and periappendiceal inflammatory changes of the right lower quadrant mesentery tracking into the right inguinal canal which may represent developing early appendicitis within right inguinal hernia. There is mild thickening and dilatation of the distal terminal ileum which may represent focal ileus.
[2025-02-20] MEDS: LACTATED RINGERS 1000 ML 1,000 ML 125 ML IV ×2 (15:21→21:36)
[2025-02-20] MEDS: PIPERACILLIN/TAZOBACTAM 3.375 GM in 0.9 % SODIUM CHLORIDE Mini-bag 100 ML IVPB (17:54)
--- NOTE | 2025-02-20 17:58 | P.GSOP_ITS ---
Operative Note Date of procedure: 02/20/25 Pre-op diagnosis: 1. Right inguinal hernia with incarcerated appendix (Amyand) 2. Acute appendicitis Post-op diagnosis: Same Type of Procedure: 1. Laparoscopic appendectomy 2. Open repair of right inguinal hernia, tissue repair reinforced with Phasix mesh Indications: The patient is a 65-year-old male who presented to the emergency department with right lower quadrant pain for the last day. He has a known right inguinal hernia that had previously not been symptomatic. He was found on imaging to have an Amyand hernia with his appendix incarcerated within and concern for appendicitis with fluid and thickening of the appendix. I recommended appendectomy and, in the absence of peritonitis, repair of the hernia. After discussion of risks and benefits, the patient was agreeable to proceed. Procedure Description: After discussing the risks and benefits of the procedure, the patient signed informed consent.? The operative site was marked and the patient was brought to the operating room and placed on the operating table in supine position.? Care was taken to pad the patient's pressure points.?? The patient was then intubated by anesthesia.?? The operative site was then prepped and draped in the usual sterile fashion.? A time-out was then performed. Entrance to the abdomen was obtained via a 5 mm optical trocar in the left upper quadrant. The abdomen was insufflated and briefly surveyed for any signs of injury. There were none. There were adhesions from the omentum to the patient's prior umbilical hernia repair. A 5 mm port was placed in left lower quadrant. I then was able to take the adhesions down bluntly. A 12 mm port was placed on the lateral left abdomen under direct vision. The patient was then placed in Trendelenburg position with the right side up. The cecum was abutting a hernia defect in the right lower quadrant. This was grasped and the appendix was pulled from an inguinal hernia defect. The appendix was adherent to the peritoneum here. Cautery was used to divide the peritoneum attaching the append ix to the hernia sac. Because the appendix was densely adherent to the peritoneum, the hernia sac itself was unable to be left intact. The appendix appeared mildly dilated the tip however not obviously inflamed. Once the appendix was free, I was able to create a mesenteric window between the base of the appendix and the mesoappendix. An [employer]ANNIE purple load stapler was then used to transect the appendix at its base. A vascular load stapler was then used to divide the mesoappendix. The staple lines were inspected for bleeding. There was none. The appendix was then removed from the abdomen using an Endo- Catch bag. The specimen was sent to pathology. The 12 mm port site fascia was closed with 0 Vicryl using a Maulik-Therese device. The skin was then closed with absorbable subcuticular suture. Sterile dressings were then applied. Attention was then turned to the right inguinal hernia. The abdomen was re- prepped and draped sterilely. New gowns gloves and instruments were used. Local anesthetic was injected into the skin and subcutaneous tissue overlying the inguinal canal. An ilioinguinal nerve block was performed. An oblique incision was made over the external ring. Dissection was carried down into the subcutaneous tissue using cautery until the external oblique fascia was encountered. This was cleared off. The external ring was identified and after injection of more local anesthetic, the external oblique was incised using a knife. This was extended using the Metzenbaum scissors with care to dissect the underlying cord structures away from the fascia before cutting. The cord structures were cleared from the inside of the external oblique. The hernia was quite large and the cremaster and internal oblique were quite thickened and fibrous. I was able with a combination of dissection with cautery and blunt dissection, to loop of the cord with a Hakan drain. I then carefully dissected through the thickened fibers and was able to identify the hernia sac as well as the cord structures. I then dissected the hernia sac off of the cord structures with a combination of blunt dissection and cautery. The sac had been torn, with dissection of the appendix off of it during the appendectomy and therefore there was communication with the peritoneal cavity. The distal aspect of the sac was ligated and the sac was oversewn with 3-0 Vicryl suture. I then reduced this into the abdominal cavity. A cord lipoma was ligated and divided and discarded. The inguinal canal was examined. As mentioned the cremaster/internal oblique was attenuated though fibrous. This was reinforced lateral to the internal ring, over-sewing this with 2-0 Vicryl to narrow the hernia opening. The inguinal canal floor appeared intact, however I again approximated using 2-0 Vicryl the transversalis fascia to the shelving edge of the inguinal ligament. Then, because of the contaminated field (communication with the peritoneum after appendectomy), I elected to use absorbable mesh. I obtained a piece of Phasix mesh and trimmed it to size. This was secured at the pubic tubercle using 1. PDS. This was run along the shelving edge of the external oblique inferiorly and attached to the transversalis fascia superiorly with a 2nd suture. I secured the tails around the cord and recreated the internal ring. The ilioinguinal nerve was identified and very carefully sharply dissected away from the mesh so as not to cause entrapment. The newly created internal ring was just large enough to permit my fingertip. The wound was examined for hemostasis which was found to be adequate. The external oblique fascia was then reapproximated with absorbable suture. The wound was then closed in layers including Alonso's fascia and the dermis with absorbable suture. The skin was then closed with a running subcuticular suture. Sterile dressings were applied. Instrument, sponge, and needle counts were correct at the end of the case. The patient was woken and taken to the PACU in stable condition. ? The patient tolerated the procedure well. Findings: 1. Inguinal hernia with incarcerated appendix, possible appendicitis 2. Large direct right inguinal hernia Surgeon: Nelda Funk MD Estimated blood loss (mL): 25 Specimen: Appendix Condition: stable Disposition: PACU
--- NOTE | 2025-02-20 17:58 | PM.GSCN ---
History of Present Illness Consult details Date Seen: 02/20/25 Consult date: 02/20/25 Narrative: The patient is a 65-year-old male who presented to the emergency department with a 1 day history of right lower quadrant pain. He states that he has a known right inguinal hernia that has not been particularly bothersome to him. He has always been able to reduce it. He does have a history of a prior umbilical hernia repair. However yesterday he was throwing logs at home and he noticed the sudden onset of right lower quadrant pain. The pain persisted today so he presented to the emergency department. There he was found to have the appendix incarcerated within the right inguinal hernia with some inflammation and fluid. He continues to have some right lower quadrant pain. He does have a history of cardiac arrest secondary to coronary artery disease in 2003. He is status post stenting. He does not currently take any medications. He does smoke 1 pack of cigarettes per day. He denies any urinary symptoms, no change in bowel habits. No fevers. He states that he has good exercise tolerance. [facility] Medical History (Updated 02/20/25 @ 15:24 by Giovanny Villareal MD) COPD (chronic obstructive pulmonary disease) ?J44.9 - Chronic obstructive pulmonary disease, unspecified (ICD-10) Cardiopulmonary arrest with successful resuscitation ?I46.9 - Cardiac arrest, cause unspecified (ICD-10) CAD (coronary artery disease) ?I25.10 - Atherosclerotic heart disease of [place] coronary artery without angina pectoris (ICD-10) Surgical History (Updated 02/20/25 @ 15:16 by Giovanny Villareal MD) H/O umbilical hernia repair ?Z98.890 - Other specified postprocedural states (ICD-10) ?Z87.19 - Personal history of other diseases of the digestive system (ICD-10) History of heart artery stent ?Z95.5 - Presence of coronary angioplasty implant and graft (ICD-10) History of hernia surgery ?Z98.890 - Other specified postprocedural states (ICD-10) ?Z87.19 - Personal history of other diseases of the digestive system (ICD-10) Social History (Updated 02/20/25 @ 15:17 by Giovanny Villareal MD) Narrative: He lives in [place] with his roommate, Kirstinhui white. Kirstin would be healthcare power of managing attorney. Code status is full. He smokes up to a pack of cigarettes per day. He does not drink alcohol. He occasionally uses cannabis What is your current living situation?: I presently have a place to live Problems where you live: no known problems In the past 12 months, utilities in danger of being shut off: no In past 12 months, lack of transportation kept you from medical appts, meetings, work, or getting things needed for daily living: no In the past 12 mos, have been you worried that your food would run out before you had money to buy more?: never true In the past 12 mos, the food you bought just didn't last and you didn't have money to buy more?: never true Smoking Status: Current every day smoker What tobacco products do you use: cigarettes Smoking packs per day: 1 Smoking cigarettes per day: 20.0 How often do you have a drink containing alcohol: never AUDIT-C Alcohol total score: 0 Non-prescribed substance use: marijuana (any form) How often does anyone, including family, friends and others, physically hurt you: never How often does anyone, including family, friends and others, insult or talk down to you: never How often does anyone, including family, friends and others, threaten you with harm: never How often does anyone, including family, friends and others, scream or curse at you: never Meds Home Medications and Allergies Home Medications ?Medication ?Instructions ?Recorded ?Confirmed ?Type No Known Home Medications 02/20/25 02/20/25 History Allergies Allergy/AdvReac Type Severity Reaction Status Date / Time No Known Drug Allergies Allergy Verified 02/20/25 10:37 Exam Narrative: Exam Narrative: General appearance: Alert, cooperative, and in no distress Eyes: PERRLA, eye lids clear, and sclera white HENT Head: Normocephalic Ears: External ears normal Pulmonary: Breathing nonlabored on room air Cardiovascular Heart: Regular rate Extremities: warm and well perfused Gastrointestinal Abdominal: Scars consistent with surgical history. Nondistended. He is tender in the right lower quadrant with rebound. : Reducible and nontender right inguinal hernia. No hernia noted on the left with Valsalva. Musculoskeletal: Extremities: Upper: Both upper extremities have normal joint range of motion and intact strength. Lower: Both lower extremities have normal joint range of motion and intact strength. Skin: Normal skin color, texture, and turgor. Neurologic: No focal deficits Psychiatric: Alert, oriented, cooperative, normal affect. Const: Vital Signs, click to edit/add: Vital Signs - 24 hr 02/20/25 10:35 02/20/25 13:49 02/20/25 14:38 Temperature 97.1 F L 97.6 F Pulse Rate [Pulse Oximeter] 74 61 Pulse Rate [Right Radial] 58 L Respiratory Rate 20 18 18 Blood Pressure [Ri ght Arm] 156/80 H Blood Pressure [Ri ght Upper Arm] 160/83 H 136/84 Pulse Oximetry 97 97 100 Oxygen Delivery Me thod Room Air Room Air Room Air Oxygen Flow Rate 02/20/25 15:44 02/20/25 15:44 02/20/25 15:46 Temperature 97.6 F Pulse Rate [Pulse Oximeter] Pulse Rate [Right Radial] 52 L 52 L Respiratory Rate 16 16 16 Blood Pressure [Ri ght Arm] 163/78 H Blood Pressure [Ri ght Upper Arm] Pulse Oximetry 100 100 Oxygen Delivery Me thod Room Air Room Air Oxygen Flow Rate 0 Results Labs Labs: Abnormal lab results 02/20/25 02/20/25 Range/Units 11:25 11:55 Anion Gap 3 L (7-15) mEq/L Urine Appearance Slightly Cloudy A (Clear) Urine Ketones Trace A (Negative) Urine Nitrite Positive A (Negative) Urine WBC 5-10 A (0-5) Urine Bacteria Many A (None) Diabetes panel 02/20/25 Range/Units 11:25 Sodium 137 (135-149) mmol/L Potassium 3.7 (3.6-5.1) mmol/L Chloride 108 (96-114) mmol/L Carbon Dioxide 26 (20-32) mmol/L BUN 18 (7-30) mg/dL Creatinine 0.9 (0.5-1.5) mg/dL Glucose 106 (60-115) mg/dL Calcium 9.2 (8.4-10.6) mg/dL Calcium panel 02/20/25 Range/Units 11:25 Calcium 9.2 (8.4-10.6) mg/dL Pituitary panel 02/20/25 Range/Units 11:25 Sodium 137 (135-149) mmol/L Potassium 3.7 (3.6-5.1) mmol/L Chloride 108 (96-114) mmol/L Carbon Dioxide 26 (20-32) mmol/L BUN 18 (7-30) mg/dL Creatinine 0.9 (0.5-1.5) mg/dL Glucose 106 (60-115) mg/dL Calcium 9.2 (8.4-10.6) mg/dL Adrenal panel 02/20/25 Range/Units 11:25 Sodium 137 (135-149) mmol/L Potassium 3.7 (3.6-5.1) mmol/L Chloride 108 (96-114) mmol/L Carbon Dioxide 26 (20-32) mmol/L BUN 18 (7-30) mg/dL Creatinine 0.9 (0.5-1.5) mg/dL Glucose 106 (60-115) mg/dL Calcium 9.2 (8.4-10.6) mg/dL All other labs normal. Imaging Abdomen CT scan report/results: report reviewed and image reviewed Additional studies: Impression: 1. Demonstration of a herniated appendix within a right inguinal hernia consistent with an Amyand hernia with questionable dilatation of the proximal appendix and periappendiceal inflammatory changes of the right lower quadrant mesentery tracking into the right inguinal canal which may represent developing early appendicitis within right inguinal hernia. There is mild thickening and dilatation of the distal terminal ileum which may represent focal ileus. Please note that all CT scans at this facility use dose modulation, iterative reconstruction, and/or weight-based dosing when appropriate to reduce radiation dose to as low as reasonably achievable. Dictated by Luis Mejia MD @ 02/20/2025 11:48:22 AM Progress Note:A&P Assessment and plan (1) CAD (coronary artery disease): Status: Acute (2) COPD (chronic obstructive pulmonary disease): Status: Acute (3) Inguinal hernia: Status: Acute (4) Appendicitis: Status: Acute Plan The patient is a 65-year-old male with a right inguinal Amyand hernia. Labs are normal, however with persistent right lower quadrant pain an fluid and some appendiceal thickening, I think that appendectomy is warranted. We discussed that this can most often be done laparoscopically. We discussed risks and benefits of the procedure including but not limited to bleeding, need for conversion to open, risk of injury to other structures, need for possible bowel resection, and abscess formation. The patient understands that the risk of abscess is higher if the appendix is perforated. For that reason, we generally keep patient is in the hospital on IV antibiotics until vital signs and white blood cell count had normalized. We next discussed the hernia. As long as he does not have perforated appendicitis, then I would plan on repairing his right inguinal hernia in an open fashion. We discussed the pathology of hernias as well as risks and benefits of repair. We discussed that mesh is used to decrease risk of recurrence. If there is significant intra-abdominal contamination then I would use a tissue repair, buttressed with absorbable mesh. If I have no concerns about intra-abdominal contamination and am able to stay preperitoneal, then I would use permanent mesh as risk of infection postoperatively would be low. We discussed recovery from surgery including 4 weeks of lifting restrictions. I do recommend that he stay overnight in the hospital given his cardiac history. He is agreeable with this. We will plan on surgery urgently this evening.
[2025-02-20] MEDS: BUPIVACAINE 0.25% 30 ML INJECTION (20:30)
--- NOTE | 2025-02-20 20:48 | P.ANES_ITS ---
Anesthesia Charges Start Date/Time Anesthesia Start Date: 02/20/25 Anesthesia Start Time: 17:39 Stop Date/Time Anesthesia Stop Date: 02/20/25 Anesthesia Stop Time: 20:52 Summary Emergency: AGRICULTURAL SYSTEMS SPECIALIST Coding CPT Codes CPT Codes: ANESTH SURG LOWER ABDOMEN - 62929 ([id number]) P3 - PATIENT W/SEVERE SYS DISEASE, QZ - AGRICULTURAL SYSTEMS SPECIALIST SVC W/O NICKING MACHINE OPERATOR BY Additional Codes: Summary - Emergency: AGRICULTURAL SYSTEMS SPECIALIST ([id number])
--- NOTE | 2025-02-20 20:48 | W.ANESCHARGE ---
Anesthesia Charges Start Date/Time Anesthesia Start Date: 02/20/25 Anesthesia Start Time: 17:39 Stop Date/Time Anesthesia Stop Date: 02/20/25 Anesthesia Stop Time: 20:52 Summary Emergency: MIDWIFE Coding CPT Codes CPT Codes: ANESTH SURG LOWER ABDOMEN - 85037 ([id number]) P3 - PATIENT W/SEVERE SYS DISEASE, QZ - MIDWIFE SVC W/O FIRST FRONT VENTILATOR BY Additional Codes: Summary - Emergency: MIDWIFE ([id number])
[2025-02-20] MEDS: HYDROCODONE-ACETAMIN 5-325 MG 1 TAB PO (21:57)
[2025-02-20] MEDS: SODIUM CHLORIDE 0.9 % (FLUSH) 10 ML SYRINGE 5 ML IVF (21:57)
--- NOTE | 2025-02-20 22:30 | PC.NURSE ---
end of shift: Pt. is AOx4. Pre-op checklist reviewed and completed. Pt. reported /10 before surgery, refused cold pack and pain med. Pt. IND w/ cares and AMB. Post-surgery, pt denies n/v. Three incision sites with steri strips. CDI. Pt reported /10, pain med given; see EMAR. Pt. tolerating food and fluid.
[2025-02-21] VITALS: BP 110/71; PULSE 60; RESP 16; TEMP 36.4; O2SAT 93
[2025-02-21 01:00] VITALS: BP 120/73; PULSE 65; RESP 16; O2SAT 94
[2025-02-21 02:00] VITALS: BP 123/70; PULSE 68; RESP 14; O2SAT 93
[2025-02-21 03:00] VITALS: BP 117/65; PULSE 60; RESP 18; TEMP 36.4; O2SAT 95
[2025-02-21 07:00] VITALS: BP 119/76; PULSE 62; RESP 16; TEMP 36.3; O2SAT 97
--- NOTE | 2025-02-21 07:18 | PC.NURSE ---
Pt alert and oriented x3. Afebrile. Pt reports 2-5/10 pain abdomen, managed with PRN medication. Pt?s 3 lap sites are CDI. Pt is up ad doug, voiding, and tolerating a regular diet. ?
--- NOTE | 2025-02-21 07:29 | PM.DS1 ---
DS: Providers Provider Date Seen: 02/21/25 Primary care physician: Lauren Westfall CNP Attending Physician on discharge: Nelda Funk MD Date of Discharge: 02/21/25 DS: Diagnosis Discharge Diagnosis (1) Appendicitis: Status: Acute Problem details: - s/p appi and hernia repair with Dr. Funk of General Surgery on 02/20/25 (2) Inguinal hernia: Status: Acute (3) CAD (coronary artery disease): Status: Acute Problem details: - Cardiac arrest June 2023. Right coronary stent placed at that time. Subsequently he has discontinued antiplatelet and lipid-lowering therapy. (4) COPD (chronic obstructive pulmonary disease): Status: Acute Problem details: - secondary to cigarette smoking. Continues to smoke, precontemplative regarding cessation DS: Summary Hospital Course Hospital Course: Darvin was admitted to the hospital on 02/20/25 for right lower quadrant abdominal pain, ultimately diagnosed with appendicitis and a right inguinal hernia with incarcerated appendix. He had an appendectomy + hernia repair with Dr. Brizuela of general surgery in 02/20/2025 Comorbidities with details noted above (notably, cardiac arrest in 2023). There were no operative or anesthetic complications during procedure; patient tolerated p.o. intake and had return of bowel function, requesting discharge home on 02/21/25. Status at Discharge Overall status at discharge: patient is progressing back to baseline Time Spent with Patient Time attestation: Total time spent providing and/or coordinating discharge services: Time spent: Greater than 30 minutes Exam Narrative: Exam Narrative: Gen: Resting comfortably in bed, nontoxic CV: Regular rate and rhythm, no concerning murmur R: Mild rhonchi throughout, intermittent expiratory wheezing bilateral apices, overall adequate air movement Ab: No distention, steri strips cover incision site with no oncerning oozing or bruising Ext: wwp, no concerning edema Const: Vital Signs, click to edit/add: Vital Signs - 24 hr 02/20/25 10:35 02/20/25 13:49 02/20/25 14:38 Temperature 97.1 F L 97.6 F Pulse Rate Pulse Rate [Pulse Oximeter] 74 61 Pulse Rate [Right Radial] 58 L Respiratory Rate 20 18 18 Blood Pressure Blood Pressure [Ri ght Arm] 156/80 H Blood Pressure [Ri ght Upper Arm] 160/83 H 136/84 Pulse Oximetry 97 97 100 Oxygen Delivery Me thod Room Air Room Air Room Air Oxygen Flow Rate 02/20/25 15:44 02/20/25 15:44 02/20/25 15:46 Temperature 97.6 F Pulse Rate Pulse Rate [Pulse Oximeter] Pulse Rate [Right Radial] 52 L 52 L Respiratory Rate 16 16 16 Blood Pressure Blood Pressure [Ri ght Arm] 163/78 H Blood Pressure [Ri ght Upper Arm] Pulse Oximetry 100 100 Oxygen Delivery Me thod Room Air Room Air Oxygen Flow Rate 0 02/20/25 20:44 02/20/25 20:50 02/20/25 20:55 Temperature 97.5 F L 96.3 F L 96.4 F L Pulse Rate 48 L 48 L 48 L Pulse Rate [Pulse Oximeter] Pulse Rate [Right Radial] Respiratory Rate 16 16 16 Blood Pressure 129/72 117/73 105/62 Blood Pressure [Ri ght Arm] Blood Pressure [Ri ght Upper Arm] Pulse Oximetry 93 92 93 Oxygen Delivery Me thod Room Air Room Air Room Air Oxygen Flow Rate 0 02/20/25 21:00 02/20/25 21:05 02/20/25 21:14 Temperature 96.6 F L 96.5 F L 96.8 F L Pulse Rate 49 L 48 L 48 L Pulse Rate [Pulse Oximeter] Pulse Rate [Right Radial] Respiratory Rate 16 16 18 Blood Pressure 121/74 117/71 121/68 Blood Pressure [Ri ght Arm] Blood Pressure [Ri ght Upper Arm] Pulse Oximetry 95 92 94 Oxygen Delivery Me thod Room Air Room Air Room Air Oxygen Flow Rate 0 0 02/20/25 21:30 02/20/25 21:45 02/20/25 22:00 Temperature 96.9 F L Pulse Rate 47 L 43 L 46 L Pulse Rate [Pulse Oximeter] Pulse Rate [Right Radial] Respiratory Rate 16 16 16 Blood Pressure 110/71 118/70 Blood Pressure [Ri ght Arm] Blood Pressure [Ri ght Upper Arm] Pulse Oximetry 97 98 97 Oxygen Delivery Me thod Room Air Room Air Room Air Oxygen Flow Rate 0 0 0 02/20/25 22:15 02/20/25 22:45 02/20/25 23:00 Temperature 97.4 F L 97.5 F L 97.6 F Pulse Rate 53 L 56 L 61 Pulse Rate [Pulse Oximeter] Pulse Rate [Right Radial] Respiratory Rate 16 16 16 Blood Pressure 148/83 H 123/70 152/80 H Blood Pressure [Ri ght Arm] Blood Pressure [Ri ght Upper Arm] Pulse Oximetry 96 98 97 Oxygen Delivery Me thod Room Air Room Air Room Air Oxygen Flow Rate 0 02/20/25 23:00 02/20/25 23:00 02/21/25 00:00 Temperature 97.6 F Pulse Rate 60 Pulse Rate [Pulse Oximeter] Pulse Rate [Right Radial] 56 L Respiratory Rate 16 16 16 Blood Pressure 110/71 Blood Pressure [Ri ght Arm] Blood Pressure [Ri ght Upper Arm] Pulse Oximetry 97 93 Oxygen Delivery Me thod Room Air Room Air Oxygen Flow Rate 0 0 02/21/25 01:00 02/21/25 02:00 02/21/25 03:00 Temperature 97.6 F Pulse Rate 65 68 60 Pulse Rate [Pulse Oximeter] Pulse Rate [Right Radial] Respiratory Rate 16 14 18 Blood Pressure 120/73 123/70 117/65 Blood Pressure [Ri ght Arm] Blood Pressure [Ri ght Upper Arm] Pulse Oximetry 94 93 95 Oxygen Delivery Me thod Room Air Room Air Room Air Oxygen Flow Rate 0 0 0 DS: Data Data Completed and Pending Labs on day of discharge: Labs from last 24 hours 02/20/25 02/20/25 11:55 11:25 WBC 7.06 RBC 4.80 Hgb 14.5 Hct 44.7 MCV 93 MCH 30 MCHC 32 RDW Coeff of [place] 13.5 Plt Count 172 Neut % (Auto) 67.8 Lymph % (Auto) 22.1 [place] % (Auto) 8.2 Eos % (Auto) 1.4 Baso % (Auto) 0.4 Neut # (Auto) 4.78 Lymph # (Auto) 1.56 [place] # (Auto) 0.60 Eos # (Auto) 0.10 Baso # (Auto) 0.03 Abs Immat Gran (auto) 0.01 Imm/Tot Granulo (auto) 0.1 Sodium 137 Potassium 3.7 Chloride 108 Carbon Dioxide 26 Anion Gap 3 L BUN 18 Creatinine 0.9 Estimated Creat Clear 68.85 Estimated GFR 95 Glucose 106 Calcium 9.2 C-Reactive Protein 0.5 Urine Color Yellow Urine Appearance Slightly Cloudy A Urine pH 6.0 Ur Specific [place] 1.025 Urine Protein Negative Urine Glucose (UA) Negative Urine Ketones Trace A Urine Blood Negative Urine Nitrite Positive A Urine Bilirubin Negative Urine Urobilinogen 0.2 Ur Leukocyte Esterase Negative Urine RBC 0-2 Urine WBC 5-10 A Ur Squamous Epith Cells None Urine Bacteria Many A Preliminary micro results at discharge 02/20/25 11:55 Urine Culture - Preliminary Urine,Clean Catch Gram negative eileen Discharge Plan Discharge Disposition: Home w/ Parent or Adult Discharging Surgeon: Nelda Funk Follow-Up Appointment: 2 weeks [facility] Prescriptions: New hydrocodone-acetaminophen 5-325 mg tablet 1 - 2 tab PO Q6H PRN (Reason: Pain) Qty: 20 0RF Rx Instructions: 1 - 2 tab orally as needed Activity Level: No strenuous activity Activity Detail: No lifting more than 20 lb for 4 weeks Discharge Diet: Regular Patient Instructions: Hydrocodone/Acetaminophen (By mouth), General Anesthesia (DC), Inguinal Hernia Repair (DC), NH+C Post-Operative Instructions: Appendectomy, NH+C Post-Operative Instructions: Hernia Repair Additional Instructions: Wound care: Your sutures are under the skin and will dissolve over time. Leave steri strips (white bandages) over incisions until they fall off (or remove after 7 days). OK to shower tomorrow but avoid bathing, soaking or swimming for 2 weeks. Pat the incisions dry. No need to wash or scrub the area. Apply ice to the area as needed for swelling. It is also OK to use a heating pad if this provides more comfort to you. Pain control: You were prescribed a pain medication. This medication contains acetaminophen (Tylenol). If you are taking your prescribed pain pills 4 times daily, do not take additional acetaminophen. As your pain improves, you can try taking acetaminophen instead of the prescribed pain pill. It is ok to take Ibuprofen or Naproxen (per directions on packaging). This medication helps with inflammation and swelling. Take an [id number] stool softener while you are taking prescribed pain medications to help alleviate constipation. I recommend Senna and/or Colace. Take as directed on package. If you have not had a bowel movement in 3 days, try taking Miralax as directed on the package. All of these are available over the counter. Follow-up Follow up with Dr. Funk in 2-3 weeks Please call if you are experiencing severe pain, nausea, vomiting, difficulty urinating, fever or have not had bowel movement in 4 days after surgery. Follow-up: Lauren Westfall CNP [Primary Care Provider, Family Practice] Nelda Funk MD [Staff Physician, General Surgery] Referral Note: 2-3 weeks Discharge Orders: Discharge Order (Routine); Ordered 02/21/25 Ordered By: Nancy Cordova
--- NOTE | 2025-02-21 07:34 | PM.GSPN ---
Subjective Subjective Date Seen: 02/21/25 Interval history: Darvin has been stable overnight. Denies any significant pain. He is anxious to discharge home. Exam Narrative: Exam Narrative: General: No acute distress Respiratory: Breathing nonlabored on room air Abdomen: Incisions without erythema. Const: Vital Signs, click to edit/add: Vital Signs - 24 hr 02/20/25 10:35 02/20/25 13:49 02/20/25 14:38 Temperature 97.1 F L 97.6 F Pulse Rate Pulse Rate [Pulse Oximeter] 74 61 Pulse Rate [Right Radial] 58 L Respiratory Rate 20 18 18 Blood Pressure Blood Pressure [Ri ght Arm] 156/80 H Blood Pressure [Ri ght Upper Arm] 160/83 H 136/84 Pulse Oximetry 97 97 100 Oxygen Delivery Me thod Room Air Room Air Room Air Oxygen Flow Rate 02/20/25 15:44 02/20/25 15:44 02/20/25 15:46 Temperature 97.6 F Pulse Rate Pulse Rate [Pulse Oximeter] Pulse Rate [Right Radial] 52 L 52 L Respiratory Rate 16 16 16 Blood Pressure Blood Pressure [Ri ght Arm] 163/78 H Blood Pressure [Ri ght Upper Arm] Pulse Oximetry 100 100 Oxygen Delivery Me thod Room Air Room Air Oxygen Flow Rate 0 02/20/25 20:44 02/20/25 20:50 02/20/25 20:55 Temperature 97.5 F L 96.3 F L 96.4 F L Pulse Rate 48 L 48 L 48 L Pulse Rate [Pulse Oximeter] Pulse Rate [Right Radial] Respiratory Rate 16 16 16 Blood Pressure 129/72 117/73 105/62 Blood Pressure [Ri ght Arm] Blood Pressure [Ri ght Upper Arm] Pulse Oximetry 93 92 93 Oxygen Delivery Me thod Room Air Room Air Room Air Oxygen Flow Rate 0 02/20/25 21:00 02/20/25 21:05 02/20/25 21:14 Temperature 96.6 F L 96.5 F L 96.8 F L Pulse Rate 49 L 48 L 48 L Pulse Rate [Pulse Oximeter] Pulse Rate [Right Radial] Respiratory Rate 16 16 18 Blood Pressure 121/74 117/71 121/68 Blood Pressure [Ri ght Arm] Blood Pressure [Ri ght Upper Arm] Pulse Oximetry 95 92 94 Oxygen Delivery Me thod Room Air Room Air Room Air Oxygen Flow Rate 0 0 02/20/25 21:30 02/20/25 21:45 02/20/25 22:00 Temperature 96.9 F L Pulse Rate 47 L 43 L 46 L Pulse Rate [Pulse Oximeter] Pulse Rate [Right Radial] Respiratory Rate 16 16 16 Blood Pressure 110/71 118/70 Blood Pressure [Ri ght Arm] Blood Pressure [Ri ght Upper Arm] Pulse Oximetry 97 98 97 Oxygen Delivery Me thod Room Air Room Air Room Air Oxygen Flow Rate 0 0 0 02/20/25 22:15 02/20/25 22:45 02/20/25 23:00 Temperature 97.4 F L 97.5 F L 97.6 F Pulse Rate 53 L 56 L 61 Pulse Rate [Pulse Oximeter] Pulse Rate [Right Radial] Respiratory Rate 16 16 16 Blood Pressure 148/83 H 123/70 152/80 H Blood Pressure [Ri ght Arm] Blood Pressure [Ri ght Upper Arm] Pulse Oximetry 96 98 97 Oxygen Delivery Me thod Room Air Room Air Room Air Oxygen Flow Rate 0 02/20/25 23:00 02/20/25 23:00 02/21/25 00:00 Temperature 97.6 F Pulse Rate 60 Pulse Rate [Pulse Oximeter] Pulse Rate [Right Radial] 56 L Respiratory Rate 16 16 16 Blood Pressure 110/71 Blood Pressure [Ri ght Arm] Blood Pressure [Ri ght Upper Arm] Pulse Oximetry 97 93 Oxygen Delivery Me thod Room Air Room Air Oxygen Flow Rate 0 0 02/21/25 01:00 02/21/25 02:00 02/21/25 03:00 Temperature 97.6 F Pulse Rate 65 68 60 Pulse Rate [Pulse Oximeter] Pulse Rate [Right Radial] Respiratory Rate 16 14 18 Blood Pressure 120/73 123/70 117/65 Blood Pressure [Ri ght Arm] Blood Pressure [Ri ght Upper Arm] Pulse Oximetry 94 93 95 Oxygen Delivery Me thod Room Air Room Air Room Air Oxygen Flow Rate 0 0 0 Progress Note:A&P Assessment and plan (1) CAD (coronary artery disease): Status: Acute (2) Status post right inguinal hernia repair: Status: Acute (3) Status post appendectomy: Status: Acute Plan The patient is a 65-year-old male who is postop day 1 status post laparoscopic appendectomy and open right inguinal hernia repair for incarcerated Amyand hernia. He is doing well overall. He may discharge home today. Discharge instructions placed.
--- NOTE | 2025-02-21 08:53 | PC.NURSE ---
Pt doing well this morning. VSS. Reports mild pain, not requiring pain medications. Ambulating independently and tolerating regular diet. Surgical sites are clean, dry and intact.
--- NOTE | 2025-02-22 09:09 | PM.EN ---
Chart Event Note Chart Event Note: Darvin was discharged from the hospital yesterday, noted to have a positive E coli UTI on culture after discharge. Called and left a message on his voicemail; sent 5 days of Keflex and to preferred pharmacy. Asked him to call back if he had any further questions.
== END 2025-02-21 09:15 | disposition home or self-care (01) ==
LOC: ED 13:38 → MEDSURG 14:38 → OR 17:26 → MEDSURG 17:26
PROVIDERS: Emergency Provider Family Medicine; PCP Nurse Practitioner Family; Visit Provider Surgery
PROC: 0DTJ4ZZ Resection of Appendix, Percutaneous Endoscopic Approach (ICD-10-PCS; CPT 44970; principal; 2025-02-20 17:30)
PROC: (CPT 44970; 2025-02-20 17:30)
DX: K35.80 Unspecified acute appendicitis (principal); K40.30 Unilateral inguinal hernia, with obstruction, without gangrene, not specified as recurrent; N39.0 Urinary tract infection, site not specified; B96.20 Unspecified Escherichia coli [E. coli] as the cause of diseases classified elsewhere; R10.31 Right lower quadrant pain; J44.9 Chronic obstructive pulmonary disease, unspecified; I25.10 Atherosclerotic heart disease of native coronary artery without angina pectoris; F17.210 Nicotine dependence, cigarettes, uncomplicated; Z95.5 Presence of coronary angioplasty implant and graft
CPT/HCPCS: 44970; 49507; 00840; 36415; 71046; 74176; 80048; 81001; 85025; 86140; 87086; 88304; 93005; 99140; 99284; 99285; A9270; C1781; J0330; J0665; J1100; J2543; J2704; J3010; J3475; J3490; J7120

== ENCOUNTER 2025-05-12 21:22 | Emergency (ER) | payer MEDICARE, SELFPAY ==
[2025-05-12 21:29] VITALS: BP 169/78; PULSE 79; RESP 18; TEMP 36.4; O2SAT 96; BMI 27.7
--- NOTE | 2025-05-12 21:34 | ED.GENADULT ---
HPI - General Adult General Chief complaint: Skin/Abscess/Foreign Body Stated complaint: bug bite L hand Time Seen by Provider: 05/12/25 21:34 History of Present Illness HPI narrative: pt here with what he thinks are bug bites to left forearm , 2 red raised bumps that were itchy but not now, opened one of them and rubbed alcohol on 65-year-old man presenting to the emergency department with concern bug bites on his left forearm. Has been spending a lot of time working on his car a [employer]. Sounds like he is changing his transmission from an automatic to manual. Does admit that he fell asleep in the warmth under the car yesterday. Woke with these bites. They are itchy. He has treated them each 3 times with alcohol and 3 times with hydrogen peroxide. He has been squeezing on them as well. During exam he also mentions his right thumb has really been bothering him. He thinks he got something in there may be 2 or 3 weeks ago. Thinks maybe some metal maybe some glass. Has become increasingly sensitive when he bumps it on things. No drainage. Has not tried any treatment other than he has been digging on at regularly trying to get something out. No fever. Related Data Home Medications ?Medication ?Instructions ?Recorded ?Confirmed albuterol sulfate 90 mcg/actuation 2 puff inhalation QID PRN wheezing 05/12/25 05/12/25 aerosol inhaler (Ventolin HFA) Previous Rx's ?Medication ?Instructions ?Recorded hydrocodone 5 mg-acetaminophen 325 1 - 2 tab PO Q6H PRN Pain #20 tabs 02/20/25 mg tablet cephalexin 500 mg capsule 500 mg PO TID #15 caps 02/22/25 Allergies Allergy/AdvReac Type Severity Reaction Status Date / Time niacin Allergy Severe Flushing Verified 05/12/25 21:29 Review of Systems Status of ROS: Reports: 6 or more systems reviewed and unremarkable except as noted in History and below [facility] Medical History COPD (chronic obstructive pulmonary disease) ?J44.9 - Chronic obstructive pulmonary disease, unspecified (ICD-10) Cardiopulmonary arrest with successful resuscitation ?I46.9 - Cardiac arrest, cause unspecified (ICD-10) CAD (coronary artery disease) ?I25.10 - Atherosclerotic heart disease of [place] coronary artery without angina pectoris (ICD-10) Surgical History H/O umbilical hernia repair ?Z98.890 - Other specified postprocedural states (ICD-10) ?Z87.19 - Personal history of other diseases of the digestive system (ICD-10) History of heart artery stent ?Z95.5 - Presence of coronary angioplasty implant and graft (ICD-10) History of hernia surgery ?Z98.890 - Other specified postprocedural states (ICD-10) ?Z87.19 - Personal history of other diseases of the digestive system (ICD-10) Social History Narrative: He lives in [place] with his roommate, Kirstin white. Kirstin would be healthcare power of assistant attorney general. Code status is full. He smokes up to a pack of cigarettes per day. He does not drink alcohol. He occasionally uses cannabis What is your current living situation?: I presently have a place to live Problems where you live: no known problems In the past 12 months, utilities in danger of being shut off: no In past 12 months, lack of transportation kept you from medical appts, meetings, work, or getting things needed for daily living: no In the past 12 mos, have been you worried that your food would run out before you had money to buy more?: never true In the past 12 mos, the food you bought just didn't last and you didn't have money to buy more?: never true Smoking Status: Current every day smoker What tobacco products do you use: cigarettes Smoking packs per day: 1 Smoking cigarettes per day: 20.0 How often do you have a drink containing alcohol: never AUDIT-C Alcohol total score: 0 Non-prescribed substance use: marijuana (any form) How often does anyone, including family, friends and others, physically hurt you: never How often does anyone, including family, friends and others, insult or talk down to you: never How often does anyone, including family, friends and others, threaten you with harm: never How often does anyone, including family, friends and others, scream or curse at you: never Exam Narrative: Exam Narrative: Subtle expiratory wheeze in breathing which he blames on cat allergy not COPD. Skin is warm and dry. Pleasant. Energetic. Smells strongly of car oil, grease. Examination of the left wrist shows to mildly erythematous swellings at the dorsum of the distal forearm. The uppermost 1 has a scab forming. Pressure here does result in a small amount of purulence. Neither is fluctuant. There are oval and about 2 cm in diameter. No erosions. The right thumb in question like most of his hands, is heavily callused. There is an area more toward the pad/palmar surface where he has been digging but more at the tip seems to be little irritated. Quite tender to palpation. I do not see erythema outside of the thumb, on the hand or forearm. Const: Vital Signs, click to edit/add: Vital Signs - 24 hr 05/13/25 00:33 Pulse Rate 67 Respiratory Rate 16 Blood Pressure 150/89 H Pulse Oximetry 98 Oxygen Delivery Me thod Room Air Documenting provider has reviewed patient's vital signs: yes Course Vital Signs Vital signs: Initial Vital Signs Temperature 97.5 F L 05/12/25 21:29 Temperature Source Temporal Artery Scan 05/12/25 21:29 Pulse Rate 79 05/12/25 21:29 Respiratory Rate 18 05/12/25 21:29 Blood Pressure 169/78 H 05/12/25 21:29 Blood Pressure Mean 108 H 05/12/25 21:29 Blood Pressure Position Sitting 05/12/25 21:29 Pulse Oximetry 96 05/12/25 21:29 Oxygen Delivery Method Room Air 05/12/25 21:29 Vital Signs Temperature 97.5 F L 05/12/25 21:29 Pulse Rate 79 05/12/25 21:29 Respiratory Rate 18 05/12/25 21:29 Blood Pressure 169/78 H 05/12/25 21:29 Pulse Oximetry 96 05/12/25 21:29 Oxygen Delivery Method Room Air 05/12/25 21:29 Temperature 97.5 F L 05/12/25 21:29 Pulse Rate 67 05/13/25 00:33 Respiratory Rate 16 05/13/25 00:33 Blood Pressure 150/89 H 05/13/25 00:33 Pulse Oximetry 98 05/13/25 00:33 Oxygen Delivery Method Room Air 05/13/25 00:33 Medical Decision Making MDM Narrative Medical decision making narrative: I did collect wound culture from the apparent bug bite on the left wrist. Proposed x-ray of the right thumb to see if there might be some foreign body. Three-view of the right thumb and family reviewed by me shows a linear likely metallic foreign body at the tip of the thumb near the skin surface. There also is some erosion of the tuft with what looks like also a graying that could be purulence. Unclear whether not he has traumatized this before. He has injured his hands on numerous occasions in his work. I ask him to soak his hands in Hibiclens and water solution. I believe he manipulated his finger but this did erupt, open up spilling into the water. No culture was possible. Returned to place a digital block with bupivacaine. Excellent anesthesia achieved of the right thumb. Further opened up the distal thumb with curved mosquito. I did see this linear foreign body and with another wipe of gauze I believe it vanished into my gauze not to be found again. Purulence appears to have drained from this wound at the distal thumb. I would estimate there is a defect in here now about a cm in diameter maybe a little less. Only saw bloody drainage as I worked on it. Will need to heal by secondary intention. Placed bacitracin and bandage and a finger Stax splint which I modified. This is his dominant hand and thumb is rather large. Indication: Distal/tip foreign body? Technique: Right thumb 3 views. Comparison: None. Findings: Bones: Osseous erosion of the 1st distal phalanx with cortical irregularity. No suspicious lesion. No acute fracture. Joint spaces: Unremarkable. Soft tissues: Linear metallic foreign body measuring 4.5 mm approximally 1.3 mm from the skin surface of the distal 1st phalanx. Impression: 1. Linear metallic foreign body measuring 4.5 mm approximately 1.3 mm from the skin surface of the distal 1st phalanx. 2. Osseous erosion of the 1st distal phalanx with cortical irregularity which may reflect osteomyelitis. If clinically warranted, an MRI can be performed for further evaluation ideally after removal of the foreign body to reduce artifact. Dictated by Dayanara Osborn MD @ 05/12/2025 10:48:40 PM Did check labs for baseline. White count was normal. CRP little elevated. ESR was pending at time of departure. Discuss this case at length with orthopedics. Anticipated initiating some ciprofloxacin. I do not see concerning secondary signs of infection. But I also have concerns of osteomyelitis here. Preference was stated to avoid fluoroquinolones. Settled on Augmentin and doxycycline which Mr. Cardona did not fill as prescribed from [facility] prior to leaving the emergency department. Had to catch ?a green party bus?. See patient discharge plan for further discussion Change dressing daily on your thumb or if it soaking through, more frequently. Watch for spreading redness after couple of days for these possible bug bites. Change dressing daily with antibiotic ointment over this next 5-7 days. Report fever, marked increase in pain. I have talked with Orthopedics tonight about your right thumb. I have concerns that infection has continued into the bone. This I think will likely require some debridement of the bone. Please call them 1st thing Wednesday morning at phone number [phone]. I think they will be reaching out to you as well. I am giving you a start of antibiotics with Augmentin and doxycycline from [facility]. Further duration of treatment and recommendations based on your follow-up with orthopedics. Augmentin can be irritating to the stomach or guts. Might want to take some yogurt with live active cultures or possibly probiotics during this course. Medical Records Medical records reviewed: Yes I reviewed the patient's medical records Lab Data Lab results reviewed: Yes I reviewed the patient's lab results Labs: Lab Results 05/13/25 Range/Units 00:45 WBC 7.88 (4.50-11.00) K/uL RBC 4.83 (4.30-5.90) m/uL Hgb 14.8 (13.5-17.5) gm/dL Hct 45.7 (37.0-53.0) % MCV 95 (80-100) fL MCH 31 (26-34) pg MCHC 32 (32-36) gm/dL RDW Coeff of Josue 12.9 (11.5-15.5) % Plt Count 182 (140-440) K/uL Neut % (Auto) 66.3 (42.0-72.0) % Lymph % (Auto) 21.2 (20-44) % [place] % (Auto) 10.3 (0.0-11.0) % Eos % (Auto) 1.6 (0.0-7.0) % Baso % (Auto) 0.5 (0.0-3.0) % Neut # (Auto) 5.22 (1.7-7.0) K/uL Lymph # (Auto) 1.67 (0.90-2.90) K/uL [place] # (Auto) 0.80 (0.00-0.90) K/UL Eos # (Auto) 0.13 (0.00-0.50) K/uL Baso # (Auto) 0.04 (0.00-0.30) K/uL Abs Immat Gran (auto) 0.01 (0.00-0.30) K/uL Imm/Tot Granulo (auto) 0.1 % ESR 8 (2-15) mm/hr Sodium 140 (135-149) mmol/L Potassium 4.1 (3.6-5.1) mmol/L Chloride 104 (96-114) mmol/L Carbon Dioxide 26 (20-32) mmol/L Anion Gap 10 (7-15) mEq/L BUN 19 (7-30) mg/dL Creatinine 0.9 (0.5-1.5) mg/dL Estimated Creat Clear 71.25 Estimated GFR 95 ml/min Glucose 96 (60-115) mg/dL Calcium 9.2 (8.4-10.6) mg/dL C-Reactive Protein 2.1 H (0.5-1.0) mg/dL Discharge Plan Discharge Clinical Impression: Felon of finger of right hand, Osteomyelitis, Bug bite Patient Disposition: Home, Self-Care Condition: Stable Additional Instructions: Change dressing daily on your thumb or if it soaking through, more frequently. Watch for spreading redness after couple of days for these possible bug bites. Change dressing daily with antibiotic ointment over this next 5-7 days. Report fever, marked increase in pain. I have talked with Orthopedics tonight about your right thumb. I have concerns that infection has continued into the bone. This I think will likely require some debridement of the bone. Please call them 1st thing Wednesday morning at phone number [phone]. I think they will be reaching out to you as well. I am giving you a start of antibiotics with Augmentin and doxycycline from [facility]. Further duration of treatment and recommendations based on your follow-up with orthopedics. Augmentin can be irritating to the stomach or guts. Might want to take some yogurt with live active cultures or possibly probiotics during this course. Prescriptions: No Action hydrocodone-acetaminophen 5-325 mg tablet 1 - 2 tab PO Q6H PRN (Reason: Pain) Qty: 20 0RF Rx Instructions: 1 - 2 tab orally as needed cephalexin 500 mg capsule 500 mg PO TID Qty: 15 0RF albuterol sulfate [Ventolin HFA] 90 mcg/actuation HFA aerosol inhaler 2 puff INHALATION QID PRN (Reason: wheezing) Follow Up/Referrals: Lauren Westfall CNP [Primary Care Provider, Family Practice] Stand Alone Forms: MyHealth Info Instructions
--- NOTE | 2025-05-12 22:00 | CRLHL7_ITS ---
For Patients: As a result of the Cures Act, medical imaging exams and procedure reports are released immediately into your electronic medical record. You may view this report before your referring provider. If you have questions, please contact your health care provider. Indication: Distal/tip foreign body? Technique: Right thumb 3 views. Comparison: None. Findings: Bones: Osseous erosion of the 1st distal phalanx with cortical irregularity. No suspicious lesion. No acute fracture. Joint spaces: Unremarkable. Soft tissues: Linear metallic foreign body measuring 4.5 mm approximally 1.3 mm from the skin surface of the distal 1st phalanx. Impression: 1. Linear metallic foreign body measuring 4.5 mm approximately 1.3 mm from the skin surface of the distal 1st phalanx. 2. Osseous erosion of the 1st distal phalanx with cortical irregularity which may reflect osteomyelitis. If clinically warranted, an MRI can be performed for further evaluation ideally after removal of the foreign body to reduce artifact. Dictated by Dayanara Osborn MD @ 05/12/2025 10:48:40 PM (Electronically Signed)
--- OUTSIDE RECORDS SUMMARY | 2025-05-12 22:12 | XMS_ITS | Clinical Summary ---
Author Organization [facility] Address [address] [place] [address] Care Team Providers Care Energy Technician Name Role Phone [facility] [place] Unavailable [phone] Clinic, [facility] v[facility] Allergies Active Allergy [...] 05/30/20 24 Active HYDROcodone-acet aminophen (5-325 mg/tablet)Indica tions:Postoperat mary pain,Inguinal swelling Take 1-2 Tablets by mouth every 4 hours if needed for Pain. Max acetaminophen dose: 4000mg in 24 hrs. 15 Tablet 02/28/20 25 Active Active Problems Problem Noted Date [...] asthma(493.90) 01/16/2011 History of heart attack 01/16/2011 Encounters Date Type Department Care Team Description 05/10/2025 Telephone [facility] [address] [place] [address] Lauren Westfall NP Letter 03/05/2025 Hospital/[facility] Telephone Encounter [facility] [address] [place] [address] Isiah Holden MD Abstract 02/27/2025 6:22 AM CDT - 02/27/2025 7:[address] [facility] [address] [place] [address] Minesh Murray MD Postoperative pain (Primary Dx); Inguinal swelling Discharge Disposition: Home Self Care 02/27/2025 Travel 02/21/2025 Travel 02/21/2025 Lab Requisition [facility] [phone] Nelda Funk MD 02/20/2025 8:00 AM CDT Office Visit [facility] at [facility] [address] [place] [address] Nelda Funk MD 02/20/2025 Orders Only [facility] Scanner 1 scan: (1-Ord) [facility], LAPAROSCOPIC APPENDECTOMY, RT INGUINAL HERNIA REPAIR, 02/20/2025 02/20/2025 Orders Only [facility] Scanner 1 scan: (1-Ord) [facility], CHEST 2V, 02/20/2025 from Last 3 Months Immunizations Immunization Administration Dates Next Due Influenza [...] or yelled at (see row info)? 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 Gender Identity Not on file Sexual Orientation Not on file Obstetrics History Last Filed Vital Signs Vital Sign Reading Time Taken Comments Blood Pressure 159/94 02/27/2025 6:32 AM CDT Pulse 74 02/27/2025 6:32 AM CDT Temperature 36.4 C (97.6 F) 02/27/2025 6:32 AM CDT Respiratory Rate 14 02/27/2025 6:32 AM CDT Oxygen Saturation 98% 02/27/2025 6:32 AM CDT Inhaled Oxygen Concentration - - Weight 86.2 kg (190 lb) 02/27/2025 6:32 AM CDT Height 172.7 cm (5' 8) 02/27/2025 6:32 AM CDT Body Mass Index 28.89 02/27/2025 6:32 AM CDT Plan of Treatment Health Maintenance Due Date Last Done Comments HIV for age 15-65 01/09/1975 Hepatitis C screening for age 18-79 01/09/1978 Colonoscopy through age 75 01/09/2005 RSV vaccine for adults or (1 - Risk 50-74 years 1-dose series) 01/09/2010 Zoster (shingles) series for age 50+ (1 of 2) 01/09/2010 BMI (ht and wt on same day) for age 18+ 09/05/2024 09/06/2023, 08/06/2023, 11/10/2022 Medicare Wellness for age 65+ 01/09/2025 Influenza Vaccine (#1) 2025 , 03/26/2016, 03/26/2016, Additional history exists Depression screening for age 12+ 05/30/2025 05/30/2024, 11/12/2022, 11/10/2022 Lipids for age 45-75 12/14/2028 12/15/2023, 11/16/19 14 Tetanus booster 10/08/2030 10/08/2020, 03/26/2011 Pneumococcal series for age 50+ Completed 08/06/2023, 07/13/2014, 11/15/2013, Additional history exists AAA screening age 65-74 Completed 02/28/20, 01/08/2018, 02/12/2016 Hepatitis B series for 19+ Aged Out N o longer eligible based on patient's age to complete this topic Medical Devices Implanted Type Area Cash Management Specialist Device Identifier Shelf Expiration Date Model / Serial / Lot Mesh Ventralex Hernia Patch (S) #[id number] - [id number] Implanted:Qty: 1 on 12/06/2013 by Lebron Kerns MD at [facility] N/A: Abdomen D-BARD 11/26/2015 [id number] / / [id number] Procedures Procedure Name Priority Date/Time Associated Diagnosis Comments CT ABDOMEN PELVIS W STAT 02/27/2025 7 :18 AM CDT CBC WITH AUTO DIFFERENTIAL STAT 02/27/2025 6:48 AM CDT BASIC METABOLIC PANEL STAT 02/27/2025 6:48 AM CDT CBC WITH AUTO DIFFERENTIAL STAT 02/27/2025 6:48 AM CDT URINALYSIS MICROSCOPIC STAT 02/27/2025 6:34 AM CDT UA W/ SEDIMENT EXAM REFLEXED PER CRITERIA STAT 02/27/2025 6:34 AM CDT LAB TRACKING EVENT Routine 02/20/2025 6: 36 PM CDT PATH TISSUE EXAM Routine 02/20/2025 6:36 PM CDT SCAN-RADIOLOGY REPORT 02/20/2025 12:00 AM CDT SCAN-OPERATIVE/PROC EDURE REPORT 02/20/2025 12:00 AM CDT LIPID PANEL W REFLEX MEASURED LDL Routine 12/15/2023 1:50 PM CDT Pure hypercholesterolemia from Last 3 Months or Most Recently Relevant to Health Maintenance Results * CT ABDOMEN PELVIS W (02/27/2025 7:18 AM CDT) Anatomical Region Laterality Modality Abdomen, Pelvis, AORTA, LIVER, SPLEEN Computed Tomography 02/27/2025 7:33 AM CDT Impressions 02/27/2025 7:33 AM CDT Marked fluid throughout the right inguinal canal, greater than expected post repair, but without definite organization. Surrounding soft tissue stranding and foci of gas is likely related to the recent repair. Post appendectomy without evidence of organized fluid collection. Fatty region at the site of appendectomy is most likely related to repair, but can also be seen with omental infarct. Marked circumferential bladder wall thickening is likely in part related to incomplete distension in the setting of chronic bladder outlet obstruction, but there may be a component of cystitis. Correlate with urinalysis. Similar infrarenal abdominal aortic aneurysm. Please note that all CT scans at this facility use dose modulation, iterative reconstruction, and/or weight-based dosing when appropriate to reduce radiation dose to as low as reasonably achievable. Dictated by Mala Araya MD @ 02/27/2025 7:33:18 AM (Electronically Signed) Narrative 02/27/2025 7:33 AM CDT For Patients: As a result of the Century Cures Act, medical imaging exams and procedure reports are released immediately into your electronic medical record. You may view this report before your referring provider. If you have questions, please contact your health care provider. INDICATION: Abdominal pain, post appendectomy and right inguinal hernia repair TECHNIQUE: CT abdomen and pelvis acquired with 100 cc Omnipaque 350 IV contrast. COMPARISON: CT chest abdomen pelvis 05/15/2012 3. FINDINGS: Lower chest: Coronary artery calcification versus stents. Liver: Hypodense region along the falciform ligament, which may represent focal fat or perfusion anomaly. Gallbladder and bile ducts: Unremarkable. Pancreas: Unremarkable. Spleen: Unremarkable. Adrenal glands: Unremarkable. Kidneys: Right renal cyst. No hydronephrosis or nephrolithiasis. GI tract: No obstruction. Colonic diverticulosis without diverticulitis. Sequela of recent appendectomy with soft tissue stranding and clips in the right lower quadrant. Previously noted bowel loops within the right inguinal hernia are now within the abdomen. Vasculature: Similar infrarenal abdominal aortic aneurysm measuring 3.7 centimeters in the AP dimension. Moderate aortoiliac atherosclerosis. Mesenteric arteries are patent. Lymph nodes: No lymphadenopathy. Peritoneum/Abdominal Wall: Fluid throughout the right inguinal canal with soft tissue stranding and foci of gas. Small fat containing left inguinal hernia versus lipomatous spermatic cord. Trace left hydrocele. Fatty region in the right lower quadrant is likely related to recent appendectomy. Pelvis: Marked circumferential bladder wall thickening. Mild prostatomegaly. Bones: Mild degenerative disease of the spine. Procedure Note Mala Araya MD - 02/27/2025 For Patients: As a result of the Cures Act, medical imagingexams and procedure reports are released immediately into your electronicmedical record. You may view this report before your referring provider.If you have questions, please contact your health care provider. INDICATION: Abdominal pain, post appendectomy and right inguinal hernia repair TECHNIQUE: CT abdomen and pelvis acquired with 100 cc Omnipaque 350 IV contrast. COMPARISON: CT chest abdomen pelvis 05/15/2012 3. FINDINGS: Lower chest: Coronary artery calcification versus stents. Liver: Hypodense region along the falciform ligament, which may representfocal fat or perfusion anomaly. Gallbladder and bile ducts: Unremarkable. Pancreas: Unremarkable. Spleen: Unremarkable. Adrenal glands: Unremarkable. Kidneys: Right renal cyst. No hydronephrosis or nephrolithiasis. GI tract: No obstruction. Colonic diverticulosis without diverticulitis.Sequela of recent appendectomy with soft tissue stranding and clips in theright lower quadrant. Previously noted bowel loops within the rightinguinal hernia are now within the abdomen. Vasculature: Similar infrarenal abdominal aortic aneurysm measuring 3.7centimeters in the AP dimension. Moderate aortoiliac atherosclerosis.Mesenteric arteries are patent. Lymph nodes: No lymphadenopathy. Peritoneum/Abdominal Wall: Fluid throughout the right inguinal canal withsoft tissue stranding and foci of gas. Small fat containing left inguinalhernia versus lipomatous spermatic cord. Trace left hydrocele. Fattyregion in the right lower quadrant is likely related to recentappendectomy. Pelvis: Marked circumferential bladder wall thickening. Mildprostatomegaly. Bones: Mild degenerative disease of the spine. IMPRESSION: Marked fluid throughout the right inguinal canal, greater than expectedpost repair, but without definite organization. Surrounding soft tissuestranding and foci of gas is likely related to the recent repair. Post appendectomy without evidence of organized fluid collection. Fattyregion at the site of appendectomy is most likely related to repair, butcan also be seen with omental infarct. Marked circumferential bladder wall thickening is likely in part relatedto incomplete distension in the setting of chronic bladder outletobstruction, but there may be a component of cystitis. Correlate withurinalysis. Similar infrarenal abdominal aortic aneurysm. Please note that all CT scans at this facility use dose modulation,iterative reconstruction, and/or weight-based dosing when appropriate toreduce radiation dose to as low as reasonably achievable. Dictated by Mala Araya MD @ 02/27/2025 7:33:18 AM (Electronically Signed) Minesh Murray MD CT Final Result * (ABNORMAL) CBC WITH AUTO DIFFERENTIAL (02/27/2025 6:48 AM CDT) WHITE BLOOD COUNT 14.3(H) 4.5 - 11.0 thou/cu mm 02/27/2025 6:56 AM [facility] RED BLOOD COUNT 4.72 4.30 - 5.90 mil/cu mm 02/27/2025 6:56 AM [facility] HEMOGLOBIN 14.3 13.5 - 17.5 g/dL 02/27/2025 6:56 AM [facility] HEMATOCRIT 44.4 37.0 - 53.0 % 02/27/2025 6:56 AM [facility] MCV 94 80 - 100 fL 02/27/2025 6:56 AM [facility] MCH 30.3 26.0 - 34.0 pg 02/27/2025 6:56 AM [facility] MCHC 32.2 32.0 - 36.0 g/dL 02/27/2025 6:56 AM [facility] RDW 13.6 11.5 - 15.5 % 02/27/2025 6:56 AM [facility] PLATELET COUNT 164 140 - 440 thou/cu mm 02/27/2025 6:56 AM [facility] MPV 11.0 6.5 - 11.0 fL 02/27/2025 6:56 AM [facility] % NEUT 86.3 % 02/27/2025 6:56 AM [facility] % LYMPH 6.3 % 02/27/2025 6:56 AM [facility] % MONO 6.0 % 02/27/2025 6:56 AM T [facility] % EOS 1.3 % 02/27/2025 6:56 AM T [facility] % BASO 0.1 % 02/27/2025 6:56 AM T [facility] ABSOLUTE NEUTROPHILS 12.3(H) 1.7 - 7.0 thou/cu mm 02/27/2025 6:56 AM T [facility] ABSOLUTE LYMPHOCYTES 0.9 0.9 - 2.9 thou/cu mm 02/27/2025 6:56 AM T [facility] ABSOLUTE MONOCYTES 0.9(H) <0.9 thou/cu mm 02/27/2025 6:56 AM [facility] ABSOLUTE EOSINOPHILS 0.2 <0.5 thou/cu mm 02/27/2025 6:56 AM [facility] ABSOLUTE BASOPHILS 0.0 <0.3 thou/cu mm 02/27/2025 6:56 AM [facility] Blood BLOOD SPECIMEN / Unknown IV Start / Unknown 02/27/2025 6:48 AM CDT 02/27/2025 6:52 AM CDT us Minesh Murray MD HEMATOLOGY Final Result [facility] [address] [place] [address] * (ABNORMAL) BASIC METABOLIC PANEL (02/27/2025 6:48 AM CDT) SODIUM 143 136 - 145 mmol/L 02/27/2025 7:15 AM [facility] POTASSIUM 4.4 3.5 - 5.1 mmol/L 02/27/2025 7:15 AM [facility] CHLORIDE 108(H) 98 - 107 mmol/L 02/27/2025 7:15 AM [facility] CO2,TOTAL 25 22 - 29 mmol/L 02/27/2025 7:15 AM [facility] ANION GAP 10 5 - 18 02/27/2025 7:15 AM [facility] GLUCOSE 116(H) 70 - 99 mg/dL 02/27/2025 7:15 AM [facility] CALCIUM 9.5 8.8 - 10.4 mg/dL 02/27/2025 7:15 AM [facility] Comment: Reference ranges for this test were updated on 05/02/2024 to reflect our healthy population more accurately. Reference range changes are not retroactively applied to results, but previous results using the same methodology can be interpreted in the context of the new reference range. BUN 16 8 - 23 mg/dL 02/27/2025 7:15 AM [facility] CREATININE 0.92 0.70 - 1.20 mg/dL 02/27/2025 7:15 AM [facility] BUN/CREAT RATIO 17 10 - 20 7:15 AM [facility] eGFR >90 >90 mL/min/1. 73m2 02/27/2025 7:15 AM [facility] Comment:As of 2021, eG FR is calculated by the CKD-EPI creatinine equation without race adjustment. eGFR can be influenced by muscle mass, exercise, and diet. The reported eGFR is an estimation only and is only applicable if the renal function is stable. Blood BLOOD SPECIMEN / Unknown IV Start / Unknown 02/27/2025 6:48 AM CDT 02/27/2025 6:52 AM CDT us Minesh Murray MD CHEMISTRY Final Result [facility] [address] [place], [place] [id number] * (ABNORMAL) URINALYSIS MICROSCOPIC (02/27/2025 6:34 AM CDT) RBC 3-5(A) 0-2, None Seen /HPF 02/27/2025 6:42 AM CDT [facility] WBC 3-5 0-2, 3-5, None Seen /HPF 02/27/2025 6:42 AM [facility] BACTERIA Many(A) None Seen, Rare, Few Bacteria/H PF 02/27/2025 6:42 AM [facility] EPITHELIAL CELLS Few None Seen, Few Epi/HPF 02/27/2025 6:42 AM [facility] Urine URINE SPECIMEN / Unknown Non-Blood / Unknown 02/27/2025 6:34 AM CDT 02/27/2025 6:37 AM CDT us Minesh Murray MD URINE Final Result [facility] [address] [place] [id number] * (ABNORMAL) UA W/ SEDIMENT EXAM REFLEXED PER CRITERIA (02/27/2025 6:34 AM CDT) COLOR Yellow Yellow Color 02/27/2025 6:40 AM [facility] CLARITY Slightly Cloudy(A) Clear Clarity 02/27/2025 6:40 AM [facility] SPECIFIC GRAVITY,URINE 1.020 1.010, 1.015, 1.020, 1.025 02/27/2025 6:40 AM [facility] PH,URINE 6.0 6.0, 7.0, 8.0, 5.5, 6.5, 7.5, 8.5 02/27/2025 6:40 AM [facility] UROBILINOGEN, QUALITATIVE Normal Normal EU/dl 02/27/2025 6:40 AM [facility] PROTEIN, URINE Negative Negative mg/dL 02/27/2025 6:40 AM [facility] GLUCOSE, URINE Negative Negative mg/dL 02/27/2025 6:40 AM [facility] KETONES,URINE Negative Negative mg/dL 02/27/2025 6:40 AM [facility] BILIRUBIN,URI NE Negative Negative 02/27/2025 6:40 AM [facility] OCCULT BLOOD,URINE Trace(A) Negative 02/27/2025 6:40 AM CDT [facility] NITRITE Positive(A) Negative 02/27/2025 6:40 AM CDT [facility] LEUKOCYTE ESTERASE Trace(A) Negative 02/27/2025 6:40 AM CDT [facility] Urine URINE SPECIMEN / Unknown Non-Blood / Unknown 02/27/2025 6:34 AM CDT 02/27/2025 6:37 AM CDT us Minesh Murray MD URINE Final Result [facility] [address] [place] [address] * LAB TRACKING EVENT (02/20/2025 6:36 PM CDT) Other (Other) Client Collect / Unknown 02/20/2025 6:36 PM CDT 02/21/2025 1:34 PM CDT us Nelda Funk MD LAB BILL ONLY Final Re sult Performing Organization Address City/[facility]/ZIP Co de Phone Number [facility] [address] [place] [address], * PATH TISSUE EXAM (02/20/2025 6:36 PM CDT) Case Report Pathology Report Case: [id number] Authorizing Provider: Nelda Funk MD Collected: 02/20/2025 1836 Ordering Location: [facility] Received: 02/21/2025 1410 Pathologist: Bhaskar Zuñiga MD Specimen: Appendix 02/23/2025 2:09 PM CDT [employer] LABORATORY-[facility]AL LABORATORY Final Diagnosis A) APPENDIX, APPENDECTOMY: 1. Acute appendicitis 2. Negative for neoplasm 02/23/2025 2:09 PM CDT [facility] at 1409 CDT Clinical Information Mr. Cardona is a 65 y.o. who undergoes appendectomy. 02/23/2025 2:09 PM CDT [facility] Gross Description A) Received in formalin, labeled with the patient's name and Appendix, is a 7.8 cm long appendix with an average diameter of 0.8 cm, with attached mesoappendix. The serosa is figueroa-brown and smooth. The wall averages 0.2 cm. The mucosa is figueroa-brown and smooth. A discrete mass, fecalith or perforation is not identified. Remedial Reading Teacher sections including the en face margin (inked black) are submitted in two cassettes. VRS 02/21/2025 02/23/2025 2:09 PM CDT [facility] Microscopic Description The final diagnosis is based on microscopic examination of appropriate sections of all specimens. 02/23/2025 2:09 PM CDT [facility] Additional Information Interpreted at [facility] - [address] [place] [address] 02/23/2025 2:09 PM CDT [facility] Other APPENDIX SPECIMEN / Unknown 02/20/2025 6:36 PM CDT 02/21/2025 2:10 PM CDT Nelda Funk MD PATHOLOGY/CYTOLOGY Final Result [facility] [address] [place] [address], [place] * SCAN-RADIOLOGY REPORT (02/20/2025 12:00 AM CDT) Anatomical Region Laterality Modality Other us Scanner OTHER Final Result * SCAN-OPERATIVE/PROCEDURE REPORT (02/20/2025 12:00 AM CDT) us Scanner OTHER Final Result * (ABNORMAL) LIPID PANEL W REFLEX MEASURED LDL ([id number]) (12/15/2023 1:50 PM CDT) CHOLESTEROL,TOTAL 209(H) 100 - 199 mg/dL 12/15/2023 2:33 PM CDT [facility] Comment: Cholesterol, Total Reference Ranges Desirable <200 mg/dL Borderline 200-239 mg/dL High >=240 mg/dL TRIGLYCERIDES 241(H) <150 mg/dL 12/15/2023 2:33 PM [facility] HDL CHOLESTEROL 39(L) >40 mg/dL 2:33 PM T [facility] NON-HDL CHOLESTEROL 170(H) <145 mg/dl 12/15/2023 2:33 PM T [facility] CHOL/HDL RATIO 5.36(H) <4.50 12/15/2023 2:33 PM T [facility] LDL CHOLESTEROL 122 <=130 mg/dL 12/15/2023 2:33 PM [facility] VLDL CHOLESTEROL 48(H) <=30 mg/dL 12/15/2023 2:33 PM [facility] PROVIDER ORDERED STATUS RANDOM 12/15/2023 2:33 PM [facility] Blood BLOOD SPECIMEN / Unknown Venipuncture / Unknown 12/15/2023 1:50 PM CDT 12/15/2023 1:50 PM CDT Andrew Joe MD CHEMISTRY Final Result Performing Organization Address City/State/[facility] Co de Phone Number [facility] [address] [place] [address] from Last 3 Months or Most Recently Relevant to Health Maintenance Insurance [facility] * Guarantor: TAMARA MCDONALD (DOT,PRE-EMP,RESP,INJ,AUDIO) Account Type Relation to Patient Date of Phone Billing Address [facility] [employer] [id number] [place] [id number] * Guarantor: TAMARA MCDONALD DS & BAT ONLY Account Type Relation to Patient Date of Phone Billing Address [facility] [employer] Employer 06/28/2000 [employer] [id number] [facility] [address] [place] [id number] Advance Directives * Full Code (Latest Code [...] 10:54 PM 11/15/2013 4:57 PM Care Teams Energy Technician Relationship Specialty Start Date End Date Clinic, [facility] [address] [facility] [place] [id number] PCP - General 10/30/[address] [facility] [id number] 07/29/23
[2025-05-13 00:33] VITALS: BP 150/89; PULSE 67; RESP 16; O2SAT 98
[2025-05-13 00:53] LABS: Hematocrit* 45.7 % (37.0-53.0); Hemoglobin* 14.8 gm/dL (13.5-17.5); Immature Granulocytes Abs Auto 0.01 K/uL (0.00-0.30); Immature Granulocytes Pct Auto 0.1 %; Lymphocytes Absolute Auto 1.67 K/uL (0.90-2.90); Mean Corpuscular HGB Conc 32 gm/dL (32-36); Mean Corpuscular Hemoglobin 31 pg (26-34); Mean Corpuscular Volume 95 fL (80-100); RDW Coefficient of Variation % 12.9 % (11.5-15.5); Red Blood Count* 4.83 m/uL (4.30-5.90); White Blood Count* 7.88 K/uL (4.50-11.00)
[2025-05-13 00:54] LABS: Slide Review Reflex No
[2025-05-13 00:59] LABS: Chloride* 104 mmol/L (96-114); Potassium* 4.1 mmol/L (3.6-5.1); Sodium* 140 mmol/L (135-149)
[2025-05-13 01:03] LABS: Anion Gap 10 mEq/L (7-15); Blood Urea Nitrogen* 19 mg/dL (7-30); Calcium* 9.2 mg/dL (8.4-10.6); Carbon Dioxide* 26 mmol/L (20-32); Creatinine* 0.9 mg/dL (0.5-1.5); Est. Creatinine Clearance* 71.25; Estimated Glomerular Filt Rate 95 ml/min; Glucose* 96 mg/dL (60-115)
[2025-05-13 01:21] LABS: Erythrocyte SedimentationRate* 8 mm/hr (2-15)
== END 2025-05-13 01:16 | disposition home or self-care (01) ==
PROVIDERS: Emergency Provider Family Medicine; PCP Nurse Practitioner Family
DX: S50.862A Insect bite (nonvenomous) of left forearm, initial encounter (principal); L03.011 Cellulitis of right finger; S61.041A Puncture wound with foreign body of right thumb without damage to nail, initial encounter; M86.9 Osteomyelitis, unspecified; F17.210 Nicotine dependence, cigarettes, uncomplicated; W57.XXXA Bitten or stung by nonvenomous insect and other nonvenomous arthropods, initial encounter
CPT/HCPCS: 36415; 73140; 80048; 85025; 85651; 86140; 87070; 87186; 99284